=== PATIENT | female | born 1935 | race Caucasian/White ===

== ENCOUNTER 2018-03-08 14:47 | Inpatient (IN) | payer OTHER ==
[~2018-03-08] VITALS: Ht 170.2 cm; Wt 127.0 kg
[2018-03-08 15:00] VITALS: BP 150/68
--- NOTE | 2018-03-08 15:03 | NUR ---
pt to rm 5 biba
--- NOTE | 2018-03-08 15:10 | NUR ---
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 Patient was walking to restroom when she fall to her knees then fell forwards and hit her head/front of torso. Pt also reports of diarrhea/productive cough with white phelgm/weakness x 1 week. Patient denies any fevers/chestpain/sob/abd pain. Pt is aox4 to person, place, situation, and time. RR are even and unlabored. Patient solided with brown solid feces to adult briefs and clothes. Patient clean, changed into clean linen, and given bed bath. NAD. Pulse ox=85% on ra. Patient placed on 2L NC. ER MD Cuellar made aware of patient status. Patient to cardiac, bp, pulse, and pulse ox monitoring.
--- NOTE | 2018-03-08 16:10 | NUR ---
notified er md harris that patient has not been seen britany. no change in patient's condition. nad. vss. will continue to monitor.
[2018-03-08] MEDS ORDERED: ACET-2869 PO (16:19)
[2018-03-08] MEDS ORDERED: DILT300C16 PO (16:19)
[2018-03-08] MEDS ORDERED: LOSA100T25 PO (16:19)
[2018-03-08] MEDS ORDERED: WARF-18 PO (16:19)
[2018-03-08] MEDS ORDERED: [UNRECOGNIZED DRUG - CODE] PO ×2 (16:19→20:59)
[2018-03-08] MEDS ORDERED: FLUO10CA21 PO ×2 (16:19→20:59)
[2018-03-08] MEDS ORDERED: VITD1000 PO (16:19)
--- NOTE | 2018-03-08 17:10 | NUR ---
no order for patient yet. er md harris aware. vss. nad. patient laying supine in [facility] with no complaints. all needs met at this time. will continue to monitor.
[2018-03-08 18:14] LABS: HEMATOCRIT 43.8 % (36-48); HEMOGLOBIN 14.4 g/dL (12.0-16.0); MEAN CORPUSCULAR HEMOGLOBIN 31 pg (27-31); MEAN CORPUSCULAR HGB CONC 33 g/dL (33-37); MEAN CORPUSCULAR VOLUME 94.2 fL (80-94); PLATELET COUNT (AUTO) 235 K/uL (140-450); RED BLOOD CELL COUNT(AUTO) 4.65 MIL/uL (4.20-5.40); RED CELL DISTRIBUTION WIDTH 15.2 % (11.6-13.7)
[2018-03-08 18:36] LABS: ANION GAP 11.5 (8-16); CARBON DIOXIDE 25.4 mmol/L (21-32); CHLORIDE 100 mmol/L (98-107); CREATININE 0.9 mg/dL (0.6-1.3); GLUCOSE 122 mg/dL (74-106); POTASSIUM 3.9 mmol/L (3.5-5.1); SODIUM SERUM 133 mmol/L (136-145); UREA NITROGEN, BLOOD 16 mg/dL (7-18)
[2018-03-08 18:40] LABS: PROTHROMBIN TIME 24.2 secs (10.8-13.4)
[2018-03-08 18:43] LABS: ALBUMIN 2.8 g/dL (3.4-5.0); ASPARTATE AMINOTRANSFERASE 29 U/L (15-37); TOTAL BILIRUBIN 0.7 mg/dL (0.0-1.0); WHITE BLOOD COUNT (AUTO) 16.6 K/uL (4.8-10.8)
[2018-03-08 18:45] LABS: LYMPHOCYTES % (MANUAL) 2 % (20-46); MONOCYTES % (MANUAL) 6 % (5-12)
--- NOTE | 2018-03-08 18:48 | NUR ---
# 8 FR Urinary catheter inserted utilizing sterile technique. Immediate return ofyellow 100 ml urine noted. Urine sample collected and sent to lab. Pt tolerated procedure well.
--- NOTE | 2018-03-08 19:22 | NUR ---
Pt report given to Tito BOB. Transfer of care at this time.
--- NOTE | 2018-03-08 19:30 | NUR ---
PATIENT REFUSING CT EXAMINATION AT THIS TIME.
[2018-03-08 20:21] LABS: APPEARANCE,URINE CLOUDY (CLEAR); BILIRUBIN,URINE NEGATIVE (NEGATIVE); BLOOD, URINE 3+ (NEGATIVE); COLOR,URINE YELLOW (YELLOW); LEUKOCYTE ESTERASE ,URINE TRACE (NEGATIVE); NITRITE, URINE NEGATIVE (NEGATIVE); UGLUCOSE NEGATIVE (NEGATIVE)
[2018-03-08] MEDS ORDERED: ZOLPIDEM 5 MG TAB PO PRN (20:25)
[2018-03-08] MEDS ORDERED: ACETAMINOPHEN 325 MG TAB PO PRN (20:25)
[2018-03-08] MEDS ORDERED: ONDANSETRON 4 MG/2 ML VIAL IVP PRN (20:25)
[2018-03-08] MEDS ORDERED: HYDROcodone/APAP 7.5/325 MG 1 TAB PO PRN (20:25)
[2018-03-08 20:38] LABS: RBC,URINE 3-10 (FEW) /HPF (0-5)
--- NOTE | 2018-03-08 20:41 | NUR ---
Dr. Jacob evaluating patient at bedside.
--- NOTE | 2018-03-08 20:55 | NUR ---
Patient will be admitted to care of DR. TOMPKINS. Admited to TELE. Will go to room 108A. Belongings list completed. Report to JOHN BOB.
[2018-03-08] MEDS ORDERED: HYD1C TP (20:59)
[2018-03-08] MEDS ORDERED: [UNRECOGNIZED DRUG - CODE] TP (20:59)
[2018-03-08 21:14] LABS: FREE T4 (FREE THYROXINE) 1.1 ng/dL (0.76-1.46); MAGNESIUM 1.7 mg/dL (1.8-2.4); PHOSPHORUS 2.5 mg/dL (2.5-4.9); THYROID STIMULATING HORMONE 1.25 uIU/mL (0.34-3.74)
--- NOTE | 2018-03-08 21:42 | NUR ---
RECEIVED BY CHARGE NURSE AT 2100 THIS FEMALE OBESE PT. WITH DX. OF WEAKNESS , SP FALL AT HOME WITH R/O OF UTI, POSSIBLE SPINAL STENOSIS. IVF SITE TO LEFT FOREARM #22 . PATENT AND WITH GOOD BLOOD RETURN. NO SOB. 02 SAT 96 %. ABLE TO VERBALIZE NEEDS WELL IN LATVIAN. DENIES ANY PAIN AT THIS TIME. ORIENTED TO USE OF CALL LIGHT AND RAPID RESPONSE. DAUGHTER AND SON IN HERE ACCOMPANYING HER. TELEMETRY MONITORING. NSR IN STORAGE ADMINISTRATOR. REFUSED TO HAVE HER BACK CHECKED. STATED" I HAVE NO WOUNDS BACK THERE" . ALERT AND ORIENTED X 4. ROM X 4. BED ALARM ON AND CALL LIGHT WITH IN REACH.
--- NOTE | 2018-03-08 22:30 | NUR ---
PT. TURNED TO SIDE WITH PILLOW SUPPORT TO PRESSURE AREAS. NOTED PT. HAS REDNESS TO ABDOMINAL FOLDS . APPLIED INTER DRY TO FOLDS . WITH BILATERAL LOWER EXTREMITIES DARK DISCOLORATION . REFUSED TO HAVE HER BACK BE CHECKED FOR REDNESS. PROVIDED WITH ADDITIONAL WARM BLANKET RT "I AM COLD" RE-ORIENTED TO CALL LIGHT USE.
[2018-03-08] MEDS ORDERED: cefTRIAXone 1,000 MG VIAL ONE ×2 (23:25)
[2018-03-08] MEDS: DOCUSATE SODIUM 100 MG GELCAP PO SCH (23:25)
[2018-03-08] MEDS: NACL 0.9% 1,000 ML IV SCH (23:25)
[2018-03-09 00:25] VITALS: BP 117/75
[2018-03-09] MEDS ORDERED: MECLIZINE 25 MG TAB PO PRN (01:30)
[2018-03-09] MEDS ORDERED: WARF-18 PO (01:47)
[2018-03-09] MEDS ORDERED: HYDROCORTISONE 1% CRM 30 GM TUBE TP SCH (01:55)
[2018-03-09] MEDS ORDERED: HYDROcodone/APAP 5/325 MG 1 TAB TAB PO PRN (01:55)
[2018-03-09] MEDS ORDERED: FUROSEMIDE 40 MG/4 ML VIAL IVP SCH (02:30)
--- NOTE | 2018-03-09 03:00 | NUR ---
PT. TURNED TO SIDES. PILLOW SUPPORT TO PRESSURE AREAS. ABLE TO VERBALIZE NEEDS WELL. TELEMETRY MONITORING. NO COMPLAINTS DONE.
[2018-03-09 04:00] VITALS: BP 116/74
--- NOTE | 2018-03-09 05:31 | NUR ---
PT. AM PERSONAL HYGIENE RENDERED. SLEPT WELL THIS SHIFT. CALL LIGHT WITH IN REACH. NO SOB. TELEMETRY MONITORING.
--- NOTE | 2018-03-09 07:06 | NUR ---
REPORT RECEIVED FROM CHAIR INSPECTOR NURSE AT BEDSIDE FOR CONTINUITY OF CARE. PATIENT AWAKE AND ALERT, RESPIRATIONS EVEN AND UNLABORED ON 2L O2 VIA NC. PATIENT DENIES PAIN AT THIS TIME. IV TO R HAND INFUSING IVF WELL, PATENT, INTACT, AND ASYMPTOMATIC. UPDATED BOARD. UPDATED PLAN OF CARE WITH PATIENT. PATIENT VERBALIZED UNDERSTANDING. SAFETY PRECAUTION IN PLACE, CALL LIGHT WITHIN REACH. WILL CONTINUE TO MONITOR PATIENT.
--- NOTE | 2018-03-09 07:25 | NUR ---
ENDORSED TO THE NEXT RN FOR CONTINUITY OF CARE. KEPT DRY AND CLEAN. TURNED TO SIDES Q 2H. MAXIMUM ASSIST. TELEMETRY MONITORING.
[2018-03-09 07:59] LABS: BASOPHILS % (AUTO) 0.3 % (0.0-2.0); HEMATOCRIT 42.8 % (36-48); HEMOGLOBIN 14.3 g/dL (12.0-16.0); LYMPHOCYTES # (AUTO) 0.4 K/uL (2.5-16.5); LYMPHOCYTES % (AUTO) 3.4 % (20.5-51.1); MEAN CORPUSCULAR HEMOGLOBIN 31 pg (27-31); MEAN CORPUSCULAR HGB CONC 33 g/dL (33-37); MEAN CORPUSCULAR VOLUME 94.1 fL (80-94); MONOCYTES # (AUTO) 0.9 K/uL (0.8-1.0); MONOCYTES % (AUTO) 6.6 % (1.7-9.3); NEUTROPHILS # (AUTO) 11.9 K/uL (1.8-7.7); NEUTROPHILS % (AUTO) 89.7 % (42.2-75.2); PLATELET COUNT (AUTO) 225 K/uL (140-450); RED BLOOD CELL COUNT(AUTO) 4.55 MIL/uL (4.20-5.40); RED CELL DISTRIBUTION WIDTH 15.4 % (11.6-13.7); WHITE BLOOD COUNT (AUTO) 13.2 K/uL (4.8-10.8)
[2018-03-09 08:00] VITALS: BP 156/89
[2018-03-09 08:17] LABS: ANION GAP 10.5 (8-16); CARBON DIOXIDE 26.6 mmol/L (21-32); CHLORIDE 99 mmol/L (98-107); CREATININE 0.8 mg/dL (0.6-1.3); GLUCOSE 115 mg/dL (74-106); POTASSIUM 3.1 mmol/L (3.5-5.1); SODIUM SERUM 133 mmol/L (136-145); UREA NITROGEN, BLOOD 12 mg/dL (7-18)
[2018-03-09 08:19] LABS: CHOL/HDL RATIO 2.6 (1-4.5); MAGNESIUM 1.4 mg/dL (1.8-2.4); PHOSPHORUS 2.6 mg/dL (2.5-4.9)
--- NOTE | 2018-03-09 08:32 | NUR ---
PATIENT HAS BEEN SCREENED AND CATEGORIZED HIGH NUTRITION RISK. PATIENT WILL BE SEEN WITHIN 1-2 DAYS OF ADMISSION. 03/09/18 03/10/[address]
[2018-03-09] MEDS ORDERED: LOSARTAN 50 MG TAB PO SCH (09:00)
[2018-03-09] MEDS ORDERED: WARFARIN 5 MG TAB PO SCH (09:00)
[2018-03-09] MEDS ORDERED: TERBINAFINE 1% 15 GM TUBE TP SCH (09:00)
[2018-03-09] MEDS ORDERED: DILTIAZEM 120 MG CAPER PO SCH (09:00)
[2018-03-09] MEDS ORDERED: MAGNESIUM OXIDE 400 MG TAB PO SCH (09:00)
[2018-03-09] MEDS: DOCUSATE SODIUM 100 MG GELCAP PO SCH ×2 (09:00→20:32)
[2018-03-09] MEDS ORDERED: NON-FORMULARY ITEM (Losartan Potassium 100 MG) PO SCH (09:00)
[2018-03-09] MEDS ORDERED: GLUCOSAMINE SULFATE DIPOT CHLR 1000 MG PO SCH (09:00)
--- NOTE | 2018-03-09 09:45 | NUR ---
SPOKE WITH MAGGI Mccray FROM [facility]. FAXED INITIAL REVIW TO [phone] PHONE MAGGI [phone]
[2018-03-09] MEDS: LACTOBACILLUS RHAMNOSUS GG 1 EACH CAP PO SCH (09:52)
[2018-03-09] MEDS: FLUoxetine 20 MG CAP PO SCH (09:52)
[2018-03-09] MEDS: CHOLECALCIFEROL 1,000 IU TAB PO SCH (09:53)
--- NOTE | 2018-03-09 09:53 | NUR ---
ORDERED MEDICATION GIVEN. PATIENT REFUSED COLACE STATING THAT SHE HAD BM YESTERDAY, "DON'T NEED IT", AND LOSARTAN BECAUSE SHE IS "NOT ON THAT DRUG ANYMORE". RN VERBALIZED UNDERSTANDING AND WILL SPEAK TO THE DOCTOR ABOUT PATIENT'S MEDICATION. SON JUAN C AT BEDSIDE. PATIENT REFUSED XRAY STATING THAT SHE "CAN'T DO IT" BECAUSE OF THE PAIN. EDUCATE HER ABOUT PAIN MEDICATIONS. WILL ASSESS AND ADMINISTER NEEDED. SAFETY PRECAUTION IN PLACE, CALL LIGHT WITHIN REACH. WILL CONTINUE TO MONITOR PATIENT.
--- NOTE | 2018-03-09 10:15 | NUR ---
PATIENT CURRENTLY GETTING US OF CAROTID DONE, SON JUAN C AT BEDSIDE. WILL WAIT FOR RESULTS AND CONTINUE TO MONITOR.
[2018-03-09] MEDS: KCL 20 MEQ/WATER INJ PREMIX 100 ML IV SCH ×2 (11:49→14:00)
--- NOTE | 2018-03-09 11:55 | NUR ---
ORDERED MEDICATION GIVEN. PATIENT TOLERATING IT WELL. SON JUAN C AT BEDSIDE. LABOR RELATIONS MANAGER IN TO SPEAK TO PATIENT. WILL WAIT FOR HER EVALUATION.
[2018-03-09 12:00] VITALS: BP 106/61
--- NOTE | 2018-03-09 12:03 | NUR ---
PHYSICAL THERAPY IN TO SEE THE PATIENT. PATIENT REFUSING PHYSICAL THERAPY BECAUSE "IT'S TOO HARD, AND IT HURTS". WILL WAIT FOR THEIR EVALUATION.
[2018-03-09] MEDS ORDERED: CYCLOBENZAPRINE 10 MG TAB PO PRN (12:55)
--- NOTE | 2018-03-09 13:13 | NUR ---
SPOKE TO DR. AIKEN ABOUT REDNESS IN PATIENT'S ABD FOLDS AND BOTTOM. REQUESTED FOR INTERDRY DRESSING AND HYDRAGUARD. DR. AIKEN AGREABLE. STATED THAT HE WILL PUT IN ORDERS. WILL WAIT FOR HIS ORDERS.
--- NOTE | 2018-03-09 13:40 | NUR ---
PATIENT'S IV INFILTRATED, IV REMOVED, IV CATHETER INTACT, MINIMAL BLOOD NOTED. INFORMED PATIENT THAT NEW IV WOULD BE STARTED, PATIENT AGREEABLE. NEW IV INSERTED INTO RIGHT HAND, 22G, INTACT, ASYMPTOMATIC, AND PATENT. IVPB KRIDER RUNNING. PATIENT TOLERATED IT WELL. WILL CONTINUE TO MONITOR PATIENT.
--- NOTE | 2018-03-09 14:02 | NUR ---
PATIENT REFUSING SECOND BAG OF KRIDER. SHE REQUESTED FOR PILLS BECAUSE "I CAN'T HANDLE THIS". RN VERBALIZED UNDERSTANDING, DR. AIKEN AWARE. IV NOW RUNNING NS AT 10 ML/HR ORDERED. WILL CONTINUE TO MONITOR PATIENT.
--- NOTE | 2018-03-09 14:40 | NUR ---
03/09/18 RD INITIAL ASSESSMENT COMPLETED PLEASE REFER TO NUTRITION ASSESSMENT UNDER CARE ACTIVITY FOR ESTIMATED NUTRITIONAL NEEDS. 1. CONTINUE CARDIAC DIET TOLERATED 2. PROVIDED NUTRITION EDUCATION ON LOW SODIUM DIET 3. RD TO FOLLOW-UP 3-5 DAYS, MODERATE RISK REINALDO MAYS, RD
[2018-03-09 16:00] VITALS: BP 129/54
--- NOTE | 2018-03-09 16:23 | NUR ---
RECEIVED ORDER FOR DISCHARGE PLANNING TO SNF FOR P.T. I CALLED MAGGI AT [facility],[phone] AND SHE FAXED ME A LIST OF CONTRACTED SNFS THEY HAVE CONTRACTS WITH. SHE SAID OVER THE WEEKEND, MALACHI CARROLL IS FINDING FASTENER FOR AUTH. HIS PHONE IS [phone]. FAXED INQUIRY TO SELINA LOZADA IN [place] PHONE [phone] FAX [phone] [place] FAXED INQUIRY TO [facility] PHONE [phone] FAX [phone] [place] FAXED INQUIRY TO [facility] PHONE [phone] FAX [phone] [facility]JCIECH [facility]OPE[facility] FAXED INQUIRY TO [facility] PHONE [phone] FAX [phone] WOJCIECH LOPEZ
[2018-03-09] MEDS ORDERED: MAG SULF 2000 MG/WATER PREMIX 100 ML IV ONE (16:35)
[2018-03-09] MEDS ORDERED: MAG SULF 2000 MG/WATER PREMIX 100 ML IV SCH (17:00)
[2018-03-09] MEDS ORDERED: MAGNESIUM SULFATE 1GM in DEXTROSE 5% 100 ML PREMIX IV SCH (17:00)
--- NOTE | 2018-03-09 17:09 | NUR ---
DR. EARLY IN TO SPEAK TO PATIENT, DAUGHTER AND SON AT BEDSIDE. WILL WAIT FOR HIS ORDERS.
--- NOTE | 2018-03-09 17:20 | NUR ---
ORDERED MEDICATIONS GIVEN. PATIENT TOLERATED IT WELL. WILL CONTINUE TO MONITOR PATIENT.
--- NOTE | 2018-03-09 17:35 | NUR ---
DR. EARLY ASKED ABOUT PATIENT'S WARFARIN DOSE. RN INFORMED OF WHY PHARMACIST HELD IT. DR. EARLY CALLED AND SPOKE TO PHARMACIST. WILL WAIT FOR THEIR ORDERS.
--- NOTE | 2018-03-09 19:25 | NUR ---
REPORT GIVEN AT BEDSIDE TO RECREATIONAL RESORT MANAGER NURSE AT BEDSIDE FOR CONTINUITY OF CARE. PATIENT IN STABLE CONDITION.
--- NOTE | 2018-03-09 19:25 | NUR ---
RECEIVED FROM AM RN IN BED AWAKE AND ALERT. RESPIRATORY THERAPIST IN HERE TO SEE HER PERFORM INCENTIVE SPIROMETER. [place] TURNED AND CLEANED HER . KEPT DRY , CLEAN AND COMFORTABLE. NO SOB. CALL LIGHT WITH IN REACH AND CARE PLANS FOR THE NIGHT DISCUSSED WITH HER. ENCOURAGED TO STAY ON SIDE TURNED. PILLOW SUPPORT TO PRESSURE AREAS IN PLACE.
[2018-03-09 20:25] VITALS: BP 93/63
[2018-03-09] MEDS: ATORVASTATIN 20 MG TAB PO SCH (20:32)
[2018-03-09] MEDS: NACL 0.9% 1,000 ML IV SCH (20:33)
[2018-03-09] MEDS: LOSARTAN 25 MG TAB PO SCH (20:33)
[2018-03-09] MEDS ORDERED: HYDRAGUARD CREAM TP PRN (22:35)
[2018-03-09] MEDS ORDERED: INTERDRY CLOTH TP PRN (22:35)
--- NOTE | 2018-03-09 23:15 | NUR ---
PT. SLEEPING . TELEMETRY MONITORING. NO COMPLAINTS DONE. NO RESTLESSNESS NOTED.
[2018-03-10 00:20] VITALS: BP 98/64
[2018-03-10 04:00] VITALS: BP 135/75
--- NOTE | 2018-03-10 04:02 | NUR ---
PT. AM PERSONAL CARE RENDERED. TURNED TO SIDES Q 2H . PILLOW SUPPORT TO PRESSURE AREAS. ENCOURGED TO STAY AT TURNED SIDE. TELEMETRY MONITORING. NO COMPLAINTS DONE.
[2018-03-10 06:45] LABS: BASOPHILS % (AUTO) 0.3 % (0.0-2.0); EOSINOPHILS % (AUTO) 0.5 % (0.0-4.0); HEMATOCRIT 41.9 % (36-48); HEMOGLOBIN 14.1 g/dL (12.0-16.0); LYMPHOCYTES # (AUTO) 0.9 K/uL (2.5-16.5); LYMPHOCYTES % (AUTO) 11.2 % (20.5-51.1); MEAN CORPUSCULAR HEMOGLOBIN 32 pg (27-31); MEAN CORPUSCULAR HGB CONC 34 g/dL (33-37); MEAN CORPUSCULAR VOLUME 94.2 fL (80-94); MONOCYTES # (AUTO) 0.8 K/uL (0.8-1.0); MONOCYTES % (AUTO) 10.1 % (1.7-9.3); NEUTROPHILS # (AUTO) 6.5 K/uL (1.8-7.7); NEUTROPHILS % (AUTO) 77.9 % (42.2-75.2); PLATELET COUNT (AUTO) 213 K/uL (140-450); RED BLOOD CELL COUNT(AUTO) 4.45 MIL/uL (4.20-5.40); RED CELL DISTRIBUTION WIDTH 15.1 % (11.6-13.7); WHITE BLOOD COUNT (AUTO) 8.4 K/uL (4.8-10.8)
[2018-03-10 07:06] LABS: PROTHROMBIN TIME 18.5 secs (10.8-13.4)
[2018-03-10 07:12] LABS: ANION GAP 9.3 (8-16); CARBON DIOXIDE 29.2 mmol/L (21-32); CHLORIDE 99 mmol/L (98-107); CREATININE 0.8 mg/dL (0.6-1.3); GLUCOSE 111 mg/dL (74-106); MAGNESIUM 2.1 mg/dL (1.8-2.4); POTASSIUM 3.5 mmol/L (3.5-5.1); SODIUM SERUM 134 mmol/L (136-145); UREA NITROGEN, BLOOD 13 mg/dL (7-18)
--- NOTE | 2018-03-10 07:15 | NUR ---
REPORT RECEIVED FROM REGULATORY COMPLIANCE OFFICER NURSE AT BEDSIDE FOR CONTINUITY OF CARE. PATIENT AWAKE AND ALERT, STATES THAT SHE "FEELS BETTER". RESPIRATIONS EVEN AND UNLABORED ON 2L O2 VIA NC. PATIENT DENIES PAIN AT THIS TIME. IV TO R HAND 22G INFUSING NS AT 10 ML/HR. UPDATED BOARD. UPDATED PLAN OF CARE WITH PATIENT. PATIENT VERBALIZED UNDERSTANDING. SAFETY PRECAUTION IN PLACE, CALL LIGHT WITHIN REACH. WILL CONTINUE TO MONITOR PATIENT.
[2018-03-10 07:54] VITALS: BP 140/63
[2018-03-10] MEDS ORDERED: WARFARIN 2.5 MG TAB PO SCH (09:00)
[2018-03-10] MEDS ORDERED: FUROSEMIDE 40 MG/4 ML VIAL IVP SCH (09:00)
[2018-03-10] MEDS: LOSARTAN 25 MG TAB PO SCH ×2 (09:00→20:06)
[2018-03-10] MEDS ORDERED: LOSARTAN 25 MG TAB PO SCH (09:00)
[2018-03-10] MEDS: CHOLECALCIFEROL 1,000 IU TAB PO SCH (09:25)
[2018-03-10] MEDS: CARVEDILOL 6.25 MG TAB PO SCH (09:27)
[2018-03-10] MEDS: LACTOBACILLUS RHAMNOSUS GG 1 EACH CAP PO SCH (09:27)
[2018-03-10] MEDS: FLUoxetine 20 MG CAP PO SCH (09:28)
[2018-03-10] MEDS: POTASSIUM CHLORIDE 10 MEQ TABER PO SCH (09:28)
[2018-03-10] MEDS: DOCUSATE SODIUM 100 MG GELCAP PO SCH ×2 (09:29→20:06)
[2018-03-10] MEDS: MAGNESIUM OXIDE 400 MG TAB PO SCH (09:29)
[2018-03-10] MEDS: FUROSEMIDE 20 MG/2 ML VIAL IVP SCH (09:30)
--- NOTE | 2018-03-10 09:30 | NUR ---
ORDERED MEDICATIONS GIVEN. PATIENT REFUSED COZAAR. INFORMED PATIENT OF THE REASONS WHY DR. EARLY WANTED PATIENT ON THAT MEDICATION. PATIENT VERBALIZED UNDERSTANDING BUT REINFORCED REFUSAL. RN VERBALIZED UNDERSTANDING. PATIENT TOLERATED MEDICATIONS WELL. PATIENT CURRENTLY OFF O2 VIA NC, O2 SATURATION AT 91-92%, PATIENT DENIES SOB. SAFETY PRECAUTION IN PLACE, CALL LIGHT IN PLACE, WILL CONTINUE TO MONITOR.
--- NOTE | 2018-03-10 09:50 | NUR ---
PATIENT NOW SITTING ON SIDE OF BED, NO SIGNS OF DISTRESS OR SOB ON ROOM AIR. PATIENT REQUESTED TO AMBULATE TO BATHROOM. RN STATED THAT IT WAS NOT SAFE BUT WILL INQUIRE ABOUT BEDSIDE COMMODE WITH DR. BARDALES. SPOKE WITH DR. BARDALES ABOUT BSC ORDER FOR PATIENT. ORDER IN FOR BEDSIDE COMMODE. RN AND RN STUDENT ATTEMPTED TO ASSIST PATIENT TO BEDSIDE COMMODE. PATIENT WAS UNABLE TO STAND UP AND MANEUVER HERSELF TO BSC. PATIENT NOW BACK IN BED, WILL CALL IF SHE VOIDS OR HAS BOWEL MOVEMENT. PATIENT ALSO CURRENTLY BACK ON O2 2L VIA NC. SAFETY PRECAUTION IN PLACE, CALL LIGHT WITHIN REACH, WILL CONTINUE TO MONITOR PATIENT.
--- NOTE | 2018-03-10 10:12 | NUR ---
PATIENT REFUSED SPONGE BATH OFFERED BY JAMES LONG. PATIENT DOES NOT WANT BE MOVED.
--- NOTE | 2018-03-10 11:26 | NUR ---
PATIENT RESTING COMFORTABLY IN BED, NO SIGNS OF DISTRESS OR SOB NOTED ON 2L O2 VIA NC. WILL CONTINUE TO MONITOR PATIENT.
[2018-03-10 12:40] VITALS: BP 169/76
--- NOTE | 2018-03-10 12:40 | NUR ---
PATIENT'S LUNCH ARRIVED, PATIENT REQUESTED TO SIT UP ON SIDE OF BED. PATIENT ASSISTED TO SIT UP. PATIENT NOW EATING LUNCH. PATIENT CURRENTLY ON O2 2L NC. SAFETY PRECAUTION IN PLACE, CALL LIGHT WITHIN REACH, WILL CONTINUE TO MONITOR PATIENT.
--- NOTE | 2018-03-10 12:46 | NUR ---
SELINA LOZADA IN [place] PHONE [phone] CALLED SPOKE TO [facility] PT INFO TO BE REVIEWED, REQUESTED INFO PROVIDED, [facility] NEEDS COPAY DAYS.
--- NOTE | 2018-03-10 12:59 | NUR ---
[facility] CALLED [phone] FOR F/U ACCEPTANCE, THEY WILL CALL US AFTER ADMISSION HAS REVIEWED HER CASE.
--- NOTE | 2018-03-10 13:03 | NUR ---
SELINA LOZADA IN [place] CALLED [facility] [phone] STATES THEY CAN'T ACCEPT PATIENT BECAUSE THEY ARE "NOT TAKING PAIRS"
[2018-03-10 14:05] VITALS: BP 139/71
--- NOTE | 2018-03-10 14:07 | NUR ---
DOCTORS MAKING THEIR ROUNDS. PATIENT SITTING UP ON SIDE OF BED, NO SIGNS OF DISTRESS OR SOB ON 2L NC O2. PATIENT USING PHONE TO CALL FRIENDS AND FAMILY. PATIENT DENIES PAIN AT THE MOMENT. SAFETY PRECAUTIONS IN PLACE, CALL LIGHT WITHIN REACH, WILL CONTINUE TO MONITOR PATIENT.
--- NOTE | 2018-03-10 14:22 | NUR ---
PHYSICAL THERAPY IN TO SEE THE PATIENT. WILL WAIT FOR THEIR ASSESSMENT.
--- NOTE | 2018-03-10 16:10 | NUR ---
PATIENT VOIDED, PATIENT DID NOT WANT TO BE CHAGNED BECAUSE THAT WOULD CAUSE MOVEMENT WHICH WILL CAUSE PAIN. INFORMED PATIENT THE NEED TO BE CLEAN AND DRY. PATIENT VERBALIZED UNDERSTANDING AND AGREED TO BE CHANGED. PATIENT CHANGED AND REPOSITIONED FOR COMFORT. WILL CONTINUE TO MONITOR PATIENT. Addendum: 03/10/18 at 2017 by Yusuf Squires RN INTERDRY AND HYDRAGUARD APPLIED. PATIENT TOLERATED IT WELL.
[2018-03-10] MEDS: WARFARIN 1 MG, WARFARIN 5 MG PO SCH ×2 (17:24)
--- NOTE | 2018-03-10 17:24 | NUR ---
ORDERED MEDICATIONS GIVEN. PATIENT TOLERATED IT WELL. DAUGHTER AT BEDSIDE. WILL CONTINUE TO MONITOR.
--- NOTE | 2018-03-10 19:30 | NUR ---
REPORT GIVEN TO BLACKSMITH APPRENTICE NURSE AT BEDSIDE FOR CONTINUITY OF CARE. PATIENT IN STABLE CONDITION. DAUGHTER AT BEDSIDE.
--- NOTE | 2018-03-10 19:31 | NUR ---
REPORT RECEIVED FROM AM NURSE. PT IN STABLE CONDITION. AAOX4. INTRODUCED SELF TO PT AND FAMILY. BOARD UPDATED. PT IV SITE L IV SITE 22G PATENT AND INTACT. SKIN WARM, DRY, AND INTACT WITH NO OPEN WOUNDS. REDNESS IN THE SACRAL AREA AND DISCOLORATION OF THE LOWER EXTREMITIES. PT ON 2L VIA NC. 1500ML FLUID RESTRICTION DAILY. PT IS A FALL RISK DUE TO S/P FALL. BED LOCKED IN LOW POSITION. CALL CRUZ WITHIN REACH.
[2018-03-10 20:00] VITALS: BP 139/50
--- NOTE | 2018-03-10 20:05 | NUR ---
COZAAR AND COLACE GIVEN. PT DENIED LIPITOR. PT STATES MEDICATION GIVES HER STOMACH PROBLEMS. PT TOLERATED MEDS WELL.
[2018-03-10] MEDS: ATORVASTATIN 20 MG TAB PO SCH ×2 (20:06→20:08)
[2018-03-10] MEDS: NACL 0.9% 1,000 ML IV SCH (20:23)
--- NOTE | 2018-03-10 22:50 | NUR ---
LUCIE VILLALBA. PT TOLERATED WELL.
[2018-03-11] VITALS: BP 133/52
--- NOTE | 2018-03-11 00:50 | NUR ---
PT SLEEPING COMFORTABLY IN BED. NO S/S OF DISTRESS. WILL CONTINUE TO MONITOR.
--- NOTE | 2018-03-11 03:30 | NUR ---
PT SLEEPING COMFORTABLY BUT AROUSABLE. VS STABLE. NO S/S OF DISTRESS. WILL CONTINUE TO MONITOR.
[2018-03-11 04:00] VITALS: BP 143/73
--- NOTE | 2018-03-11 04:50 | NUR ---
PT AWAKE AND ALERT. PT INCONTINENT AND LINEN CHANGE DONE.
[2018-03-11 07:05] LABS: HEMATOCRIT 41.6 % (36-48); HEMOGLOBIN 13.9 g/dL (12.0-16.0); MEAN CORPUSCULAR HEMOGLOBIN 32 pg (27-31); MEAN CORPUSCULAR HGB CONC 33 g/dL (33-37); MEAN CORPUSCULAR VOLUME 94.8 fL (80-94); PLATELET COUNT (AUTO) 244 K/uL (140-450); RED BLOOD CELL COUNT(AUTO) 4.39 MIL/uL (4.20-5.40); RED CELL DISTRIBUTION WIDTH 14.9 % (11.6-13.7); WHITE BLOOD COUNT (AUTO) 7.5 K/uL (4.8-10.8)
--- NOTE | 2018-03-11 07:05 | NUR ---
REPORT GIVEN TO AM NURSE AT BEDSIDE. PT IN STABLE CONDITION.
--- NOTE | 2018-03-11 07:06 | NUR ---
REPORT RECEIVED FROM MONEY COUNTER NURSE AT BEDSIDE FOR CONTINUITY OF CARE. PATIENT AWAKE AND ALERT. RESPIRATIONS EVEN AND UNLABORED ON 2L O2 VIA NC. PATIENT DENIES PAIN AT THIS TIME. IV TO R HAND 22G INFUSING NS AT 10 ML/HR. UPDATED BOARD. UPDATED PLAN OF CARE WITH PATIENT. PATIENT VERBALIZED UNDERSTANDING. SAFETY PRECAUTION IN PLACE, CALL LIGHT WITHIN REACH. WILL CONTINUE TO MONITOR PATIENT.
[2018-03-11 07:24] LABS: CARBON DIOXIDE 30.6 mmol/L (21-32); CHLORIDE 102 mmol/L (98-107); CREATININE 0.7 mg/dL (0.6-1.3); GLUCOSE 101 mg/dL (74-106); POTASSIUM 3.6 mmol/L (3.5-5.1); SODIUM SERUM 136 mmol/L (136-145); UREA NITROGEN, BLOOD 14 mg/dL (7-18)
[2018-03-11 07:26] LABS: MAGNESIUM 1.8 mg/dL (1.8-2.4); PHOSPHORUS 3.3 mg/dL (2.5-4.9)
[2018-03-11 07:39] LABS: PROTHROMBIN TIME 16.2 secs (10.8-13.4)
[2018-03-11 07:47] VITALS: BP 138/80
[2018-03-11 07:52] LABS: BASOPHILS % (MANUAL) 0 % (0-2); EOSINOPHILS % (MANUAL) 0 % (0-4); LYMPHOCYTES % (MANUAL) 10 % (20-46); MONOCYTES % (MANUAL) 9 % (5-12)
[2018-03-11] MEDS: FUROSEMIDE 20 MG/2 ML VIAL IVP SCH (08:10)
[2018-03-11] MEDS: MAGNESIUM OXIDE 400 MG TAB PO SCH (08:11)
[2018-03-11] MEDS: POTASSIUM CHLORIDE 10 MEQ TABER PO SCH (08:11)
[2018-03-11] MEDS: DOCUSATE SODIUM 100 MG GELCAP PO SCH ×2 (08:11→21:05)
[2018-03-11] MEDS: FLUoxetine 20 MG CAP PO SCH (08:11)
[2018-03-11] MEDS: CARVEDILOL 6.25 MG TAB PO SCH (08:12)
[2018-03-11] MEDS: CHOLECALCIFEROL 1,000 IU TAB PO SCH (08:12)
[2018-03-11] MEDS: LACTOBACILLUS RHAMNOSUS GG 1 EACH CAP PO SCH (08:12)
--- NOTE | 2018-03-11 08:15 | NUR ---
ORDERED MEDICATIONS GIVEN. PATIENT REFUSED COZAAR STATING "I DO NOT TAKE THAT". EDUCATED PATIENT ON WHY SHE WAS PUT ON HER THOSE MEDICATIONS, PATIENT VERBALIZED UNDERSTANDING BUR REITERATED HER REFUSAL. PATIENT TOLERATED HER MEDICATIONS WELL. NO SIGNS OF DISTRESS OR SOB NOTED ON 2L O2 VIA NC. PATIENT DENIES PAIN AT THE MOMENT. PATIENT SITTING UP IN BED EATING BREAKFAST. SAFETY PRECAUTION IN PLACE, CALL LIGHT WITHIN REACH, WILL CONTINUE TO MONITOR PATIENT.
[2018-03-11] MEDS: LOSARTAN 25 MG TAB PO SCH ×2 (08:20→21:05)
--- NOTE | 2018-03-11 09:31 | NUR ---
PATIENT CALLED, COMPLAINED OF PAIN 02/16 IN GROIN AREA. STATING "IT HURTS WHEN I PEE, THIS NEVER HAPPENED TO HER BEFORE." RN VERBALIZED UNDERSTANDING. SPOKE TO DR. BARDALES. DR BARDALES STATING SHE WILL PUT IN PYRIDIUM. AWAITING FOR HER ORDERS, PATIENT AWARE. WILL CONTINUE TO MONITOR PATIENT. Addendum: 03/11/18 at 1315 by Yusuf Squires RN "THIS NEVER HAPPENED TO ME BEFORE."
[2018-03-11] MEDS ORDERED: PHENAZOPYRIDINE 100 MG TAB PO SCH (10:17)
--- NOTE | 2018-03-11 10:22 | NUR ---
ORDERED MEDICATIONS GIVEN TO PATIENT, PATIENT TOLERATING IT WELL. EDUCATED PATIENT ON MEDICATION, PATIENT STATED THAT SHE HAS TAKEN PYRIDIUM BEFORE AND VERBALIZED UNDERSTANDING. PATIENT SITTING ON SIDE OF BED, NO SIGNS OF DISTRESS OR SOB NOTED. SAFETY PRECAUTION IN PLACE, CALL LIGHT WITHIN REACH. WILL CONTINUE TO MONITOR PATIENT.
[2018-03-11] MEDS ORDERED: LOSA25TA22 PO (10:48)
[2018-03-11] MEDS ORDERED: AMOX-999 PO (10:48)
[2018-03-11] MEDS ORDERED: ASCO1CAP75 PO (10:48)
[2018-03-11] MEDS ORDERED: CARV6.25 PO (10:48)
--- NOTE | 2018-03-11 10:52 | NUR ---
DR. EARLY IN TO SEE THE PATIENT. WILL WAIT FOR HIS ASSESSMENT. PATIENT'S DAUGHTER COLIN CALLED, UPDATED HER ABOUT PATIENT'S PLAN OF CARE. SHE VERBALIZED UNDERSTANDING AND STATED SHE WILL BE IN LATER TO SEE THE PATIENT.
--- NOTE | 2018-03-11 11:30 | NUR ---
PATIENT VOIDED, PATIENT CHANGED, CLEANED, HYDRAGUARD AND INTERDRY DRESSING APPLIED. PATIENT STRUGGLED TO GET BACK INTO BED FROM SITTING FROM SIDE OF BED. PATIENT TOLERATED IT. SAFETY PRECAUTION IN PLACE, CALL LIGHT WITHIN REACH, WILL CONTINUE TO MONITOR PATIENT.
[2018-03-11 12:00] VITALS: BP 139/54
[2018-03-11] MEDS ORDERED: ROC250I IV (12:05)
[2018-03-11] MEDS ORDERED: ATOR20TA PO (12:06)
[2018-03-11] MEDS: PHENAZOPYRIDINE 100 MG TAB PO SCH ×2 (12:46→17:24)
--- NOTE | 2018-03-11 12:46 | NUR ---
ORDERED MEDICATIONS GIVEN. PATIENT TOLERATING IT WELL. NO SIGNS OF DISTRESS OF SOB NOTED ON ROOM AIR. O2 SATURATION 92-93% ON ROOM AIR. PATIENT FINISHED EATING LUNCH. WILL CONTINUE TO MONITOR PATIENT.
[2018-03-11 16:00] VITALS: BP 168/63
--- NOTE | 2018-03-11 16:13 | NUR ---
PATIENT RESTING IN BED, NO SIGNS OF DISTRESS OR SOB NOTED ON ROOM AIR, O2 91-92% ON ROOM AIR. PATIENT INQUIRED ABOUT POSSIBLE DISCHARGE THIS PM. INFORMED HER THAT NO FACILITIES AVAILABLE AT THE MOMENT, SHE WILL BE UPDATED TOMORROW WHEN A SITE BECOMES AVAILABLE. SAFETY PRECAUTION IN PLACE, CALL LIGHT WITHIN REACH. WILL CONTINUE TO MONITOR PATIENT.
[2018-03-11] MEDS: WARFARIN 1 MG, WARFARIN 5 MG PO SCH ×2 (17:24)
--- NOTE | 2018-03-11 17:24 | NUR ---
ORDERED MEDICATION GIVEN. PATIENT TOLERATED IT WELL. WILL CONTINUE TO MONITOR PATIENT.
--- NOTE | 2018-03-11 19:03 | NUR ---
REPORT GIVEN TO MYCOLOGY TEACHER NURSE AT BEDSIDE FOR CONTINUITY OF CARE. PATIENT IN STABLE CONDITION.
--- NOTE | 2018-03-11 19:04 | NUR ---
REPORT RECEIVED FROM AM NURSE AT BEDSIDE. PT IN STABLE CONDITION. AAOX4. INTRODUCED SELF AND BOARD UPDATED. IV SITE L FA 22G PATENT AND INTACT. SKIN WARM, DRY, AND NOT INTACT DUE TO DISCOLORATION ON THE LOWER EXTREMITIES AND SACRAL REDNESS. BED LOCKED IN LOW POSITION. CALL CRUZ WITHIN REACH.
[2018-03-11 20:00] VITALS: BP 130/54
[2018-03-11] MEDS: ATORVASTATIN 20 MG TAB PO SCH (21:00)
--- NOTE | 2018-03-11 21:05 | NUR ---
COLACE AND COZAAR GIVEN. PT DENIED LIPITOR STATING IT GIVES HER A STOMACH ACHE. PT TOLERATED WELL.
[2018-03-11] MEDS: NACL 0.9% 1,000 ML IV SCH (21:44)
--- NOTE | 2018-03-11 22:05 | NUR ---
LUCIE VILLALBA. PT TOLERATED WELL.
--- NOTE | 2018-03-11 23:45 | NUR ---
PT VS STABLE. ASLEEP BUT AROUSABLE. WILL CONTINUE TO MONITOR.
[2018-03-12] VITALS: BP 152/61
--- NOTE | 2018-03-12 02:00 | NUR ---
PT SLEEPING COMFORTABLY IN BED. NO S/S OF DISTRESS. WILL CONTINUE TO MONITOR.
[2018-03-12 04:00] VITALS: BP 163/78
--- NOTE | 2018-03-12 04:30 | NUR ---
PT INCONTINENT. ROXANNE CHANGE DONE. ZGUARD APPLIED TO SACRAL AREA. Addendum: 03/12/18 at 0448 by Tushar Younger RN HYDRAGUARD WAS APPLIED. NOT ZGUARD.
[2018-03-12 06:59] LABS: PROTHROMBIN TIME 16.3 secs (10.8-13.4)
--- NOTE | 2018-03-12 07:20 | NUR ---
REPORT GIVEN TO AM NURSE AT BEDSIDE. PT IN STABLE CONDITION.
--- NOTE | 2018-03-12 07:25 | NUR ---
RECEIVED REPORT FROM GAME FARM HELPER NURSE, PT IS AAOX4, CHAIR BOUND, IV IS ON HER LEFT FA, PATENT, INTACT, FLUSHING WELL, NO S/S OF RESPIRATORY DISTRESS OR DISCOMFORT NOTED, PT IS ON ROOM AIR, PT HAS DISCOLORATION AND DRYNESS ON BILATERAL LOWER EXT. OPEN TO AIR, SACRAL REDNESS IS NOTED, DISCUSSED PLAN OF CARE WITH PT, PT VERBALIZED UNDERSTANDING, SAFETY/FALL PRECAUTIONS ARE IN PLACE, CALL LIGHT IS WITHIN REACH, WILL CONTINUE TO MONITOR.
[2018-03-12 08:00] VITALS: BP 163/84
[2018-03-12] MEDS: LOSARTAN 25 MG TAB PO SCH ×3 (08:52→20:24)
[2018-03-12] MEDS: CARVEDILOL 6.25 MG TAB PO SCH (08:52)
[2018-03-12] MEDS: DOCUSATE SODIUM 100 MG GELCAP PO SCH ×2 (08:52→20:19)
[2018-03-12] MEDS: PHENAZOPYRIDINE 100 MG TAB PO SCH ×3 (08:53→17:46)
[2018-03-12] MEDS: CHOLECALCIFEROL 1,000 IU TAB PO SCH (08:54)
[2018-03-12] MEDS: POTASSIUM CHLORIDE 10 MEQ TABER PO SCH (08:54)
[2018-03-12] MEDS: LACTOBACILLUS RHAMNOSUS GG 1 EACH CAP PO SCH (08:55)
[2018-03-12] MEDS: MAGNESIUM OXIDE 400 MG TAB PO SCH (08:55)
[2018-03-12] MEDS: FLUoxetine 20 MG CAP PO SCH ×2 (08:55→09:17)
[2018-03-12] MEDS: FUROSEMIDE 20 MG/2 ML VIAL IVP SCH (08:56)
--- NOTE | 2018-03-12 08:56 | NUR ---
DUE MEDICATIONS GIVEN. PT TOLERATED WELL, CALL LIGHT IS WITHIN REACH, WILL CONTINUE TO MONITOR.
--- NOTE | 2018-03-12 09:00 | NUR ---
PATIENT HAD PROZAC ORDERED 40MG CAPSULE PO, NOTICED ONE CAPSULE WAS BROKEN WHEN OPENED FROM THE PACKAGE. I CALLED PHARMACY TO LET THEM KNOW, I SPOKE TO JOSELIN. I LET JOSELIN KNOW ONE OF THE CAPSULES WAS BROKEN, JOSELIN SAID HE WOULD PUT IN AN ORDER TO REPLACE THE BROKEN CAPSULE.
[2018-03-12] MEDS ORDERED: FLUoxetine 20 MG CAP PO SCH (09:05)
--- NOTE | 2018-03-12 10:58 | NUR ---
Chemical Packager Note: Per Brooklyn from [facility] , they aren't accepting patient's health insurance plan at this time, unable to accept. Per Elisha from [facility] , no beds at this time, unable to accept. Per Isaura from [facility] , their admission coordinator is not available today, she stated she is unsure if they can accept patient and requested for SW or CM to call tomorrow. I called [facility] , no answer, left message.
--- NOTE | 2018-03-12 11:32 | NUR ---
Stock Room Manager Note: I called admisson coordinator Zakiya from [facility] / , no answer, left message. I called and spoke with Sarai from [facility] , she stated their fashion consultant Claribel was going to call me to obtain information about inquiry. Per Db from [facility] , their admission coordinator is not available today due to holiday, he requested SW or/and CM call back tomorrow 03/13/18. Addendum: 03/12/18 at 1409 by Melissa Medina SS I received a call from Claribel at [facility] , she stated they don't have any female beds available at this time.
--- NOTE | 2018-03-12 11:45 | NUR ---
PT ATTEMPTED TO STAND UP FROM BED TO USE BEDSIDE COMMODE. PT WAS UNABLE TO STAND DUE TO SEVERE WEAKNESS IN HER LEGS. PT BED CHUCKS WERE CHANGED AND PATIENT WAS REPOSITIONED WITH THE HELP OF TWO OTHER NURSES. PT TOLERATED WELL. ALL OF PATIENT'S NEEDS ARE MET AT THIS TIME. PT SON IS AT BEDSIDE, CALL LIGHT IS WITHIN REACH.
[2018-03-12 12:00] VITALS: BP 133/85
--- NOTE | 2018-03-12 14:39 | NUR ---
PT IS SLEEPING IN BED AT THIS TIME, IN SEMI FOWLERS POSITION, CALL LIGHT IS WITHIN REACH.
[2018-03-12 16:00] VITALS: BP 155/81
[2018-03-12] MEDS: WARFARIN 1 MG, WARFARIN 5 MG PO SCH ×2 (17:46)
--- NOTE | 2018-03-12 19:15 | NUR ---
RECEIVED REPORT FROM DAY SHIFT NURSE AT PT BEDSIDE. PT IN STABLE CONDITION. FAMILY IS AT BEDSIDE. PT IS A/O X4. PT IS ON RA. IV ACCESS L FA 22G. IV IS PATENT AND INTACT. BILATERAL LOWER EXTREMITY DRYNESS AND DISCOLORATION, DIRECTOR OF INSTRUCTIONAL TECHNOLOGY. SACRAL REDNESS NOTED. PT HAS NO C/O PAIN. BED IS LOCKED, LOW POSITION WITH SIDE RAILS UP X2. BOARD UPDATED. CALL LIGHT IS WITHIN REACH. WILL CONTINUE TO MONITOR PT.
--- NOTE | 2018-03-12 19:15 | NUR ---
ENDORSED PT TO SENIOR MECHANICAL ESTIMATOR NURSE FOR CONTINUITY OF CARE. PT STABLE AT THIS TIME. FAMILY MEMBER IS AT BEDSIDE.
[2018-03-12 20:00] VITALS: BP 155/66
[2018-03-12] MEDS: CARVEDILOL 12.5 MG TAB PO SCH (20:19)
[2018-03-12] MEDS: ATORVASTATIN 20 MG TAB PO SCH (20:20)
--- NOTE | 2018-03-12 20:20 | NUR ---
ADMINISTERED SCHEDULED MEDICATIONS. PT REFUSED LIPITOR AND COZAAR MEDICATION. PT STATED "SHE DOES NOT LIKE LIPITOR AND SHE DOES NOT NEED TO TAKE COZAAR." WILL CONTINUE TO MONITOR PT.
[2018-03-12] MEDS: NACL 0.9% 1,000 ML IV SCH (20:23)
--- NOTE | 2018-03-12 22:51 | NUR ---
ADMINISTERED SCHEDULED MEDICATION. PT TOLERATED WELL. HELPED ADJUST PT IN BED. PT NOW READY TO GO TO SLEEP. WILL CONTINUE TO MONITOR.
[2018-03-13] VITALS: BP 163/60
--- NOTE | 2018-03-13 01:12 | NUR ---
PT SLEEPING COMFORTABLY IN BED. NO S/SX OF DISTRESS. WILL CONTINUE TO MONITOR.
[2018-03-13 04:00] VITALS: BP 143/77
--- NOTE | 2018-03-13 04:01 | NUR ---
PT AWAKE WATCHING TV IN BED. NO SIGNS OF DISTRESS. ALL PT NEEDS ARE MET AT THIS TIME. WILL CONTINUE TO MONITOR.
--- NOTE | 2018-03-13 05:11 | NUR ---
NO CHANGE IN CONDITION. WILL CONTINUE TO MONITOR PT.
--- NOTE | 2018-03-13 07:15 | NUR ---
ENDORSED PT TO DAY SHIFT NURSE FOR CONTINUITY OF CARE. PT IN STABLE CONDITION.
--- NOTE | 2018-03-13 07:20 | NUR ---
RECEIVED REPORT FROM SOFTWARE RELEASE MANAGER NURSE, PT IS AAOX4, CHAIR BOUND, IV IS ON HER LEFT FA, PATENT, INTACT, FLUSHING WELL, NO S/S OF RESPIRATORY DISTRESS OR DISCOMFORT NOTED, PT IS ON ROOM AIR, PT HAS DISCOLORATION AND DRYNESS ON BILATERAL LOWER EXT. OPEN TO AIR, SACRAL REDNESS IS NOTED, DISCUSSED PLAN OF CARE WITH PT, PT VERBALIZED UNDERSTANDING, SAFETY/FALL PRECAUTIONS ARE IN PLACE, CALL LIGHT IS WITHIN REACH, WILL CONTINUE TO MONITOR.
[2018-03-13 07:53] LABS: BASOPHILS # (AUTO) 0.1 K/uL (0.00-0.22); EOSINOPHILS # (AUTO) 0.2 K/uL (0-0.4); EOSINOPHILS % (AUTO) 2.9 % (0.0-4.0); HEMATOCRIT 43.3 % (36-48); HEMOGLOBIN 14.3 g/dL (12.0-16.0); LYMPHOCYTES # (AUTO) 1.3 K/uL (2.5-16.5); LYMPHOCYTES % (AUTO) 17.3 % (20.5-51.1); MEAN CORPUSCULAR HEMOGLOBIN 31 pg (27-31); MEAN CORPUSCULAR HGB CONC 33 g/dL (33-37); MEAN CORPUSCULAR VOLUME 94.5 fL (80-94); MONOCYTES % (AUTO) 12.9 % (1.7-9.3); NEUTROPHILS # (AUTO) 5.1 K/uL (1.8-7.7); NEUTROPHILS % (AUTO) 65.9 % (42.2-75.2); PLATELET COUNT (AUTO) 313 K/uL (140-450); RED BLOOD CELL COUNT(AUTO) 4.58 MIL/uL (4.20-5.40); RED CELL DISTRIBUTION WIDTH 14.5 % (11.6-13.7); WHITE BLOOD COUNT (AUTO) 7.7 K/uL (4.8-10.8)
[2018-03-13 08:00] VITALS: BP 132/78
[2018-03-13] MEDS: CARVEDILOL 12.5 MG TAB PO SCH ×2 (08:09→21:00)
[2018-03-13] MEDS: FLUoxetine 20 MG CAP PO SCH (08:10)
[2018-03-13] MEDS: LOSARTAN 25 MG TAB PO SCH ×2 (08:10→21:00)
[2018-03-13] MEDS: FUROSEMIDE 20 MG/2 ML VIAL IVP SCH (08:11)
[2018-03-13] MEDS: MAGNESIUM OXIDE 400 MG TAB PO SCH (08:11)
[2018-03-13] MEDS: POTASSIUM CHLORIDE 10 MEQ TABER PO SCH (08:11)
--- NOTE | 2018-03-13 08:11 | NUR ---
DUE MEDICATIONS GIVEN. PT TOLERATED WELL. PATIENT DID ASK ME TO COME BACK AND GIVE HER THE VIT D3, COLACE AND PROBIOTIC LATER, PT STATED, "I DO NOT WANT TO TAKE TOO MANY PILLS AT ONCE." I LET HER KNOW I WOULD BE BACK TO GIVE HER THE REST.
[2018-03-13 08:59] LABS: ANION GAP 11.9 (8-16); CARBON DIOXIDE 30.7 mmol/L (21-32); CHLORIDE 100 mmol/L (98-107); GLUCOSE 97 mg/dL (74-106); POTASSIUM 3.6 mmol/L (3.5-5.1); SODIUM SERUM 139 mmol/L (136-145); UREA NITROGEN, BLOOD 15 mg/dL (7-18)
[2018-03-13 09:14] LABS: PROTHROMBIN TIME 17.2 secs (10.8-13.4)
--- NOTE | 2018-03-13 09:45 | NUR ---
PHYSICAL THERAPY IS WORKING WITH PATIENT AT BEDSIDE AT THIS TIME, HAVING THE PATIENT SIT UP AT THE EDGE OF THE BED.
[2018-03-13] MEDS: DOCUSATE SODIUM 100 MG GELCAP PO SCH ×2 (10:01→22:00)
[2018-03-13] MEDS: CHOLECALCIFEROL 1,000 IU TAB PO SCH (10:01)
[2018-03-13] MEDS: LACTOBACILLUS RHAMNOSUS GG 1 EACH CAP PO SCH (10:01)
[2018-03-13 12:00] VITALS: BP 138/81
--- NOTE | 2018-03-13 14:07 | NUR ---
SPOKE WITH MAGGI FROM [facility],[phone]. I TOLD HER WHO WE FAXED INQUIRY TO. THE SAID TO FAX TO [facility], [phone], WHICH I DID. FAXED CONCURRENT REVIEW TO [facility] [phone] PHONE MAGGI [phone]
--- NOTE | 2018-03-13 15:25 | NUR ---
PHYSICAL THERAPY CO-SIGN The Physical Therapy Progress Notes documented by Oven Technician have been reviewed. I CONCUR W/COUNSEL NOTE; CONT PER TX PLAN Reviewed/Co-Signed by: Dilcia Abrams, PT Documentation Done by: DIMAS VILLEGAS PTA Addendum: 03/13/18 at 1525 by Dilcia Abrams PT Amended: Links added.
--- NOTE | 2018-03-13 15:27 | NUR ---
RECEIVED A CALL FROM MAGGI ARELLANO [facility]. THE PATIENT HAS BEEN ACCEPTED AT [address] [address] PHONE [phone] SHE WILL GO TO ROOM [address] SAEED, AFTER 3P.M. [facility], [phone]. [facility], [phone]. I SET UP TRANSPORT FOR 7P.Ana KATE RN AWARE
--- NOTE | 2018-03-13 15:30 | NUR ---
SPOKE TO KENTON FROM CASE MANAGEMENT, SHE LET ME KNOW PATIENT WOULD BE GOING TO [facility], [address] IN [place], PHONE # [phone], ROOM 108 BED 1, ACCEPTING PHYSICIAN IS DR. SAEED. I WENT AHEAD AND INFORMED THE PATIENT AND THE PATIENT'S SON WHO IS AT PATIENT'S BEDSIDE.
[2018-03-13 16:00] VITALS: BP 153/84
--- NOTE | 2018-03-13 16:40 | NUR ---
I CALLED [facility] AND GAVE REPORT TO LOU.
[2018-03-13] MEDS: WARFARIN 1 MG, WARFARIN 5 MG PO SCH ×2 (17:11)
--- NOTE | 2018-03-13 18:08 | NUR ---
DISCHARGE INSTRUCTIONS GIVEN, IV REMOVED, CATHETER TIP INTACT, ID WRIST BAND REMOVED.
--- NOTE | 2018-03-13 19:20 | NUR ---
ENDORSED PT TO PRINT LINE FEEDER NURSE FOR CONTINUITY OF CARE, PT STABLE AT THIS TIME.
--- NOTE | 2018-03-13 19:30 | NUR ---
ASSUMED CARE OF PATIENT, AWAKE, ALERT AND ORIENTED. NO COMPLAINS. NO IV. ONLY TELEMETRY. AWAITING FOR [facility] FOR AREA SALES MANAGER TO BLUE EYE. CALL LIGHT WITHIN REACH.
[2018-03-13] MEDS: ATORVASTATIN 20 MG TAB PO SCH (21:00)
--- NOTE | 2018-03-13 21:30 | NUR ---
DC TELEMETRY. RUG DRY ROOM ATTENDANT VIA [employer] BY [facility]. PAPERWORKS GIVEN. GOING TO ROOM 108A.
[2018-03-13 21:51] VITALS: BP 146/85
[2018-03-13] MEDS: NACL 0.9% 1,000 ML IV SCH (21:59)
== END 2018-03-13 21:40 | DRG 871 ==
LOC: MED 14:47 → MTU 20:23
PROVIDERS: ADMIT General Practice; ATTEND General Practice
DX: A41.9 Sepsis, unspecified organism (principal); I50.43 Acute on chronic combined systolic (congestive) and diastolic (congestive) heart failure; E43 Unspecified severe protein-calorie malnutrition; N39.0 Urinary tract infection, site not specified; E87.1 Hypo-osmolality and hyponatremia; Z68.41 Body mass index [BMI] 40.0-44.9, adult; I42.9 Cardiomyopathy, unspecified; G90.9 Disorder of the autonomic nervous system, unspecified; E66.01 Morbid (severe) obesity due to excess calories; E83.42 Hypomagnesemia; F32.9 Major depressive disorder, single episode, unspecified; F41.9 Anxiety disorder, unspecified; I07.1 Rheumatic tricuspid insufficiency; I11.0 Hypertensive heart disease with heart failure; I27.21 Secondary pulmonary arterial hypertension; I50.810 Right heart failure, unspecified; F41.8 Other specified anxiety disorders; I48.2 Chronic atrial fibrillation; M19.90 Unspecified osteoarthritis, unspecified site; S89.91XA Unspecified injury of right lower leg, initial encounter; I83.009 Varicose veins of unspecified lower extremity with ulcer of unspecified site; Y92.238 Other place in hospital as the place of occurrence of the external cause; I89.0 Lymphedema, not elsewhere classified; L30.9 Dermatitis, unspecified; W19.XXXA Unspecified fall, initial encounter; Y93.89 Activity, other specified; Y99.8 Other external cause status; Z79.01 Long term (current) use of anticoagulants; Z88.2 Allergy status to sulfonamides; Z79.899 Other long term (current) drug therapy; Z90.49 Acquired absence of other specified parts of digestive tract
CPT/HCPCS: 36415; 71045; 73562; 80048; 80053; 81001; 82140; 82150; 83036; 83690; 83735; 83880; 84100; 84439; 84443; 84484; 85025; 85610; 85730; 87081; 87086; 87186; 93005; 93880; 93925; 93970; 97110; 97140; 97530; 99285; J0696; J1940; J3475; J3480; J7030; J7060; Q0092

== ENCOUNTER 2018-04-24 03:30 | Inpatient (IN) | payer OTHER ==
[~2018-04-24] VITALS: Ht 172.7 cm; Wt 113.4 kg
[~2018-04-24 03:30] MED LIST: ASCO1CAP75 PO; ATOR20TA PO; CARV6.25 PO; FLUO10CA21 PO; HYD1C TP; HYDR-5122 PO; LOSA25TA15 PO; ROC250I IV; VITD1000 PO; WARF-18 PO; [UNRECOGNIZED DRUG - CODE] PO; [UNRECOGNIZED DRUG - CODE] TP
--- NOTE | 2018-04-24 03:34 | NUR ---
82/F BIBA FOR RT HIP PAIN S/P MECHANICAL FALL X 5 DAYS AGO. PER EMS, PT WAS AMA 5 DAYS AGO AFTER FALL D/T PT DENIED PAIN. PT REPORTED SHE FELL IN THE BATHROOM, AMBULATES WITH WALKER. PAIN WORSENED 2 DAYS AGO. RT HIP TENDER TO TOUCH, REPORTS PAIN DURING MOVEMENT, NO SHORTENING/ OBVIOUS DEFORMITY NOTED TO EXTREMITY. PMH: HTN, AFIB Addendum: 04/24/18 at 0448 by LEYLA PT REPORTS SHE HIT HER HEAD ON WASTE BASKET AND EVENTUALLY ON THE FLOOR D/T BASKET MOVED, DENIES LOC. SKIN INTACT ON SCALP, NO INJURIES NOTED. DENIES N/V, VISUAL DISTURBANCES, AOX4
--- NOTE | 2018-04-24 03:34 | NUR ---
PT ANNA BLS. TAKEN TO BED 8
[2018-04-24 03:45] VITALS: BP 156/76
--- NOTE | 2018-04-24 04:01 | NUR ---
Dr. Sellers evaluating patient at bedside.
[2018-04-24] MEDS ORDERED: MORPHINE SULFATE 4 MG/ML SYR IVP ONE (04:05)
[2018-04-24] MEDS ORDERED: KETOROLAC 30 MG/ML VIAL IVP ONE (04:05)
[2018-04-24] MEDS ORDERED: fentaNYL 0.05 MG/ML VIAL IVP ONE ×2 (04:45→05:15)
[2018-04-24 05:05] LABS: BASOPHILS % (AUTO) 0.3 % (0.0-2.0); EOSINOPHILS # (AUTO) 0.2 K/uL (0-0.4); EOSINOPHILS % (AUTO) 1.9 % (0.0-4.0); HEMATOCRIT 40.9 % (36-48); HEMOGLOBIN 13.4 g/dL (12.0-16.0); LYMPHOCYTES # (AUTO) 1.2 K/uL (2.5-16.5); LYMPHOCYTES % (AUTO) 11.6 % (20.5-51.1); MEAN CORPUSCULAR HEMOGLOBIN 31 pg (27-31); MEAN CORPUSCULAR HGB CONC 33 g/dL (33-37); MEAN CORPUSCULAR VOLUME 94.3 fL (80-94); MONOCYTES # (AUTO) 0.7 K/uL (0.8-1.0); MONOCYTES % (AUTO) 7.2 % (1.7-9.3); NEUTROPHILS # (AUTO) 7.9 K/uL (1.8-7.7); PLATELET COUNT (AUTO) 357 K/uL (140-450); RED BLOOD CELL COUNT(AUTO) 4.33 MIL/uL (4.20-5.40); RED CELL DISTRIBUTION WIDTH 15.9 % (11.6-13.7); WHITE BLOOD COUNT (AUTO) 10.1 K/uL (4.8-10.8)
[2018-04-24 05:15] LABS: ANION GAP 8.1 (8-16); CARBON DIOXIDE 27.7 mmol/L (21-32); CHLORIDE 106 mmol/L (98-107); CREATININE 0.9 mg/dL (0.6-1.3); GLUCOSE 106 mg/dL (74-106); POTASSIUM 3.8 mmol/L (3.5-5.1); SODIUM SERUM 138 mmol/L (136-145); UREA NITROGEN, BLOOD 18 mg/dL (7-18)
--- NOTE | 2018-04-24 05:16 | NUR ---
PT TAKEN TO RADIOLOGY
[2018-04-24 05:21] LABS: ALBUMIN 2.4 g/dL (3.4-5.0); ASPARTATE AMINOTRANSFERASE 17 U/L (15-37); TOTAL BILIRUBIN 0.7 mg/dL (0.0-1.0)
--- NOTE | 2018-04-24 05:32 | NUR ---
PT RETURN FROM CT
[2018-04-24 05:37] LABS: PROTHROMBIN TIME 77.9 secs (10.8-13.4)
[2018-04-24] MEDS ORDERED: NACL 0.9% 1,000 ML IV ONE (06:00)
[2018-04-24 06:01] LABS: APPEARANCE,URINE HAZY (CLEAR); COLOR,URINE AMBER (YELLOW)
[2018-04-24 06:03] LABS: BILIRUBIN,URINE NEGATIVE (NEGATIVE); BLOOD, URINE TRACE (NEGATIVE); UGLUCOSE NEGATIVE (NEGATIVE)
--- NOTE | 2018-04-24 06:17 | NUR ---
SON AT BEDSIDE
[2018-04-24 06:22] LABS: LEUKOCYTE ESTERASE ,URINE TRACE (NEGATIVE); NITRITE, URINE POSITIVE (NEGATIVE); RBC,URINE 0-5 (RARE) /HPF (0-5)
[2018-04-24] MEDS ORDERED: cefTRIAXone 1,000 MG VIAL ONE (06:38)
[2018-04-24] MEDS ORDERED: PHYTONADIONE 10 MG in NACL 0.9% 50 ML IV ONE (06:55)
[2018-04-24] MEDS ORDERED: ED NON STOCK ORDER 1 EA MISC IVP ONE (07:00)
[2018-04-24] MEDS ORDERED: PHYTONADIONE 10 MG/ML AMP ONE (07:02)
--- NOTE | 2018-04-24 07:29 | NUR ---
Pt report given to Bindu BOB. Transfer of care at this time.
[2018-04-24] MEDS ORDERED: NEOMYCIN/POLYMYXIN/BACITRACIN OIN 15 GM TUBE TP ONE (07:40)
--- NOTE | 2018-04-24 07:48 | NUR ---
pt.r esting in bed , rr even and unlabored. Able to speak in full and complete sentences. vss. Son at bedside. Will continue to monitor. Bed in lowest position
[2018-04-24 08:30] VITALS: BP 145/75
--- NOTE | 2018-04-24 08:43 | NUR ---
Patient will be admitted to care of dr. angulo . Admited to tele . Will go to room 124b. Belongings list completed. Report to mejia angulo .
--- NOTE | 2018-04-24 08:46 | NUR ---
PATIENT HAS BEEN SCREENED AND CATEGORIZED MODERATE NUTRITION RISK. PATIENT WILL BE SEEN WITHIN 3-5 DAYS OF ADMISSION. 04/26/18 04/28/[address]
[2018-04-24] MEDS ORDERED: ONDANSETRON 4 MG/2 ML VIAL IM/IVP PRN (09:00)
[2018-04-24] MEDS ORDERED: ACETAMINOPHEN 325 MG TAB PO PRN (09:00)
[2018-04-24] MEDS ORDERED: LORazepam 2 MG/ML VIAL IM/IVP PRN (09:00)
[2018-04-24] MEDS ORDERED: MORPHINE SULFATE 2 MG/ML SYR IVP PRN ×2 (09:00→17:30)
[2018-04-24] MEDS ORDERED: ZOLPIDEM 5 MG TAB PO PRN (09:00)
[2018-04-24] MEDS ORDERED: DOCUSATE SODIUM 100 MG GELCAP PO PRN (09:00)
--- NOTE | 2018-04-24 09:00 | NUR ---
Admitted from ED , with chief complaint of RIGHT HIP PAIN X2 DAYS. PT HAD A PREVIOUS FALL AT HOME 5 DAYS AGO AND HIT HER RT HIP. PT AAOX4. NO SOB NOTED. NO C/O PAIN AT THIS TIME. IV TO RT HAND PATENT AND INTACT. CHEST CLEAR. ABDOMEN LARGE BUT SOFT. BLE DARK DRY SCABS NOTED, SKIN INTACT. RT LEG WRAP WITH KERLIX, ANTIBIOTIC OINTMENT APPLIED IN ER TO RT LEG DRY SCABS. PT IS 82 y/o ,Female, Cooperative,oriented to call light, bed, phone,television, bathroom, smoking policy, visiting hours, procedures, ID bracelet on. Belongings list checked. INSTRUCTED PT TO CALL FOR ASSISTANCE, CALL LIGHT WITHIN REACH, PT VERBALIZED UNDERSTANDING.
--- NOTE | 2018-04-24 09:00 | NUR ---
NOTED BLE DARK DRY SCABS AND REDNESS ON ABDOMINAL FOLDS, OTHERWISE SKIN INTACT.
--- NOTE | 2018-04-24 09:53 | NUR ---
DUE TO RECEIVING A FNS CONSULT, PATIENT HAS BEEN CATEGORIZED HIGH RISK. PATIENT WILL BE SEEN WITHIN 1-2 DAYS FROM RECEIVING FNS CONSULT. 04/24/18-04/25/[address]
--- NOTE | 2018-04-24 10:00 | NUR ---
CONSENT FOR BLOOD TRANSFUSION SIGNED BY PT, RISKS AND BENEFITS DISCUSSED BY DR. HWANG EARLIER, PT VERBALIZED UNDERSTANDING.
[2018-04-24 10:31] LABS: CHOL/HDL RATIO 1.6 (1-4.5); MAGNESIUM 1.8 mg/dL (1.8-2.4); THYROID STIMULATING HORMONE 3.43 uIU/mL (0.34-3.74)
[2018-04-24] MEDS: NACL 0.9% 1,000 ML IV SCH ×2 (10:40→23:29)
--- NOTE | 2018-04-24 11:00 | NUR ---
1ST UNIT FFP STARTED.WILL MONITOR FOR BLOOD TRANSFUSION REACTIONS.
[2018-04-24 11:06] LABS: ANION GAP 11.2 (8-16); CARBON DIOXIDE 23.8 mmol/L (21-32); CHLORIDE 106 mmol/L (98-107); CREATININE 0.9 mg/dL (0.6-1.3); GLUCOSE 140 mg/dL (74-106); SODIUM SERUM 137 mmol/L (136-145); UREA NITROGEN, BLOOD 19 mg/dL (7-18)
[2018-04-24 11:07] LABS: ALBUMIN 2.5 g/dL (3.4-5.0); ASPARTATE AMINOTRANSFERASE 22 U/L (15-37); TOTAL BILIRUBIN 0.9 mg/dL (0.0-1.0)
--- NOTE | 2018-04-24 11:35 | NUR ---
1ST UNIT FFP COMPLETED, NO BLOOD TRANSFUSION REACTIONS NOTED. 2ND UNIT FFP FOLLOWED, WILL OBSERVE FOR BLOOD TRANSFUSION REACTIONS.
[2018-04-24 12:00] VITALS: BP 135/78
--- NOTE | 2018-04-24 12:05 | NUR ---
2ND UNIT FFP COMPLETED WITH NO TRANSFUSION REACTION NOTED. VITAL SIGNS STABLE. NO SOB NOTED. NO C/O PAAIN AT THIS TIME. CALLED HOME THEATER INSTALLER TO DRAW BLOOD IN 15 MINS.
--- NOTE | 2018-04-24 12:30 | NUR ---
CBC, BMP, INR DRAWN ORDERED.
[2018-04-24 12:45] LABS: BASOPHILS # (AUTO) 0.1 K/uL (0.00-0.22); BASOPHILS % (AUTO) 0.9 % (0.0-2.0); EOSINOPHILS % (AUTO) 0.3 % (0.0-4.0); HEMATOCRIT 32.3 % (36-48); HEMOGLOBIN 10.7 g/dL (12.0-16.0); LYMPHOCYTES # (AUTO) 1.1 K/uL (2.5-16.5); LYMPHOCYTES % (AUTO) 10.2 % (20.5-51.1); MEAN CORPUSCULAR HEMOGLOBIN 32 pg (27-31); MEAN CORPUSCULAR HGB CONC 33 g/dL (33-37); MEAN CORPUSCULAR VOLUME 95.1 fL (80-94); MONOCYTES # (AUTO) 1.2 K/uL (0.8-1.0); MONOCYTES % (AUTO) 10.9 % (1.7-9.3); NEUTROPHILS # (AUTO) 8.4 K/uL (1.8-7.7); NEUTROPHILS % (AUTO) 77.7 % (42.2-75.2); PLATELET COUNT (AUTO) 317 K/uL (140-450); RED CELL DISTRIBUTION WIDTH 15.6 % (11.6-13.7); WHITE BLOOD COUNT (AUTO) 10.8 K/uL (4.8-10.8)
[2018-04-24 13:41] LABS: PROTHROMBIN TIME 17.7 secs (10.8-13.4)
[2018-04-24 14:02] LABS: CHLORIDE 105 mmol/L (98-107); POTASSIUM 3.7 mmol/L (3.5-5.1); SODIUM SERUM 139 mmol/L (136-145)
[2018-04-24 14:03] LABS: ANION GAP 10.2 (8-16); CARBON DIOXIDE 27.5 mmol/L (21-32); CREATININE 0.9 mg/dL (0.6-1.3); GLUCOSE 115 mg/dL (74-106); UREA NITROGEN, BLOOD 19 mg/dL (7-18)
--- NOTE | 2018-04-24 14:36 | NUR ---
04/24/18 RD INITIAL ASSESSMENT COMPLETED PLEASE REFER TO NUTRITION ASSESSMENT UNDER CARE ACTIVITY FOR ESTIMATED NUTRITIONAL NEEDS. 1. CONTINUE CARDIAC AND CCHO DIET TOLERATED 2. PROVIDE CARDIAC TLC NUTRITION; COUMADIN AND VITAMIN K-FOOD AND DRUG INTERACTION EDUCATION 3. RD TO FOLLOW-UP 2-3 DAYS, HIGH RISK REINALDO MAYS RD
--- NOTE | 2018-04-24 15:05 | NUR ---
CALLED [facility] AND SPOKE WITH HENRY, [phone]. SHE SAID FAX REVIEW TO [facility] AT [phone]. SHE IS CHECKING TO SEE THE THE REVIEWS GO TO THE INSURANCE, [facility]. SHE WILL CALL IF REVIEWS WILL GO TO [facility].
[2018-04-24 16:00] VITALS: BP 154/60
[2018-04-24] MEDS: HYDROcodone/APAP 5/325 MG 1 TAB TAB PO PRN (17:00)
[2018-04-24] MEDS ORDERED: KETOROLAC 15 MG/ML VIAL IM PRN (17:30)
--- NOTE | 2018-04-24 19:21 | NUR ---
PT AWAKE, NO SOB NOTED. NO COMPLAINTS MADE AT THIS TIME. ENDORSED TO NEXT SHIFT NURSE FOR CONTINUITY OF CARE.
--- NOTE | 2018-04-24 19:22 | NUR ---
REPORT RECEIVED FROM AM NURSE AT BEDSIDE. PT IN STABLE CONDITION. AAOX4. INTRODUCED SELF TO PT. BOARD UPDATED. IV SITE R HAND 20G RUNNING NS@90ML/HR PATENT AND INTACT. SKIN WARM, DRY, AND INTACT WITH NO OPEN WOUNDS. BLE HAS DARKENED DISCOLORATION. MD IS AWARE. BED LOCKED IN LOW POSITION. CALL CRUZ WITHIN REACH. SAFETY PRECAUTIONS IN PLACE.
[2018-04-24 20:00] VITALS: BP 102/75
[2018-04-24] MEDS: CARVEDILOL 6.25 MG TAB PO SCH (20:10)
[2018-04-24] MEDS: LOSARTAN 25 MG TAB PO SCH ×2 (20:10→20:13)
--- NOTE | 2018-04-24 20:10 | NUR ---
COREG GIVEN PO. PT REFUSED TAKING LOSARTAN. PT STATES SHE DOES NOT TAKE THAT REGULARLY ANYMORE. PT TOLERATED WELL.
[2018-04-24] MEDS ORDERED: GLUCOSAMINE SULFATE DIPOT CHLR 1000 MG PO SCH (21:00)
--- NOTE | 2018-04-24 22:30 | NUR ---
PT SLEEPING COMFORTABLY WITH HOB ELEVATED. NO COMPLAINTS OF PAIN. NO SOB. NO S/S OF DISTRESS. WILL CONTINUE TO MONITOR.
[2018-04-25] VITALS: BP 110/72
[2018-04-25] MEDS: MORPHINE SULFATE 2 MG/ML SYR IVP PRN ×2 (03:16→09:56)
--- NOTE | 2018-04-25 03:16 | NUR ---
MORPHINE 3MG IVP GIVEN FOR 9/10 PAIN. PT TOLERATED WELL.
[2018-04-25 04:00] VITALS: BP 145/51
--- NOTE | 2018-04-25 04:50 | NUR ---
PT AWAKE AND ALERT WATCHING TV. NO S/S OF DISTRESS NOTED. WILL CONTINUE TO MONITOR.
[2018-04-25 06:50] LABS: ANION GAP 7.3 (8-16); CARBON DIOXIDE 26.4 mmol/L (21-32); CHLORIDE 109 mmol/L (98-107); CREATININE 0.8 mg/dL (0.6-1.3); GLUCOSE 113 mg/dL (74-106); POTASSIUM 3.7 mmol/L (3.5-5.1); SODIUM SERUM 139 mmol/L (136-145); UREA NITROGEN, BLOOD 19 mg/dL (7-18)
[2018-04-25 07:24] LABS: HEMATOCRIT 28.5 % (36-48); HEMOGLOBIN 9.3 g/dL (12.0-16.0); MEAN CORPUSCULAR HEMOGLOBIN 32 pg (27-31); MEAN CORPUSCULAR HGB CONC 33 g/dL (33-37); MEAN CORPUSCULAR VOLUME 96.6 fL (80-94); PLATELET COUNT (AUTO) 342 K/uL (140-450); RED BLOOD CELL COUNT(AUTO) 2.95 MIL/uL (4.20-5.40); RED CELL DISTRIBUTION WIDTH 14.8 % (11.6-13.7); WHITE BLOOD COUNT (AUTO) 8.1 K/uL (4.8-10.8)
[2018-04-25 07:25] LABS: BASOPHILS # (AUTO) 0.1 K/uL (0.00-0.22); BASOPHILS % (AUTO) 0.8 % (0.0-2.0); EOSINOPHILS # (AUTO) 0.1 K/uL (0-0.4); EOSINOPHILS % (AUTO) 1.3 % (0.0-4.0); LYMPHOCYTES # (AUTO) 1.2 K/uL (2.5-16.5); LYMPHOCYTES % (AUTO) 14.5 % (20.5-51.1); MONOCYTES # (AUTO) 1.1 K/uL (0.8-1.0); MONOCYTES % (AUTO) 13.5 % (1.7-9.3); NEUTROPHILS # (AUTO) 5.6 K/uL (1.8-7.7); NEUTROPHILS % (AUTO) 69.9 % (42.2-75.2)
--- NOTE | 2018-04-25 07:25 | NUR ---
REPORT GIVEN TO AM NURSE AT BEDSIDE. PT IN STABLE CONDITION.
--- NOTE | 2018-04-25 07:26 | NUR ---
RECEIVED BEDSIDE REPORT FROM PM SHIFT NURSE. PT ASLEEP IN BED, RESPIRATIONS EVEN & UNLABORED. CALL LIGHT WITHIN REACH.
[2018-04-25 08:00] VITALS: BP 144/50
[2018-04-25] MEDS: LOSARTAN 25 MG TAB PO SCH ×4 (08:13→20:31)
[2018-04-25] MEDS: FLUoxetine 20 MG CAP PO SCH (08:13)
[2018-04-25] MEDS: CARVEDILOL 6.25 MG TAB PO SCH ×2 (08:14→20:25)
[2018-04-25] MEDS: CHOLECALCIFEROL 1,000 IU TAB PO SCH (08:14)
[2018-04-25] MEDS: LACTOBACILLUS RHAMNOSUS GG 1 EACH CAP PO SCH (08:14)
[2018-04-25] MEDS: HYDROcodone/APAP 5/325 MG 1 TAB TAB PO PRN (08:14)
--- NOTE | 2018-04-25 08:14 | NUR ---
LOSARTAN WASTED. MED POPPED OUT OF PACK, BUT PT REFUSED TO TAKE MED. STATES SHE HAD STOPPED TAKING IT YEARS AGO. EXPLAINED BENEFITS & RISKS, CONTINUE TO REFUSE MED. WILL NOTIFY PHYSICIAN.
[2018-04-25] MEDS ORDERED: RHAMNOSUS GG PO SCH (09:00)
[2018-04-25] MEDS ORDERED: INULIN PO SCH (09:00)
[2018-04-25] MEDS: NACL 0.9% 1,000 ML IV SCH ×2 (10:13→21:20)
[2018-04-25] MEDS: LORazepam 2 MG/ML VIAL IVP PRN (10:13)
--- NOTE | 2018-04-25 10:13 | NUR ---
ATIVAN ADMINISTERED FOR RESTLESSNESS R/T PAIN & VERBALIZATIONS OF FEAR OF GOING TO CT-SCAN. EXPLAINED PROCEDURES TO PT. CONT TO BE RESTLESS.
--- NOTE | 2018-04-25 10:20 | NUR ---
PT REFUSED CT-SCAN. PT REFUSED TO TRANSFER FROM [facility] TO CT TABLE D/T PAIN. OFFERED TO CALL MD FOR STRONGER PAIN MED, BUT PT REFUSED & STATES SHE WOULD RATHER THAN DO THE CT-SCAN. EXPLAINED IMPORTANCE OF PROCEDURE, PT CONT TO REFUSE. PT ESCORTED BACK TO ROOM VIA [facility]. DR HWANG NOTIFIED OF PT REFUSING CT-SCAN. NO NEW ORDERS GIVEN.
[2018-04-25 12:00] VITALS: BP 122/55
[2018-04-25 14:11] LABS: BASOPHILS # (AUTO) 0.1 K/uL (0.00-0.22); BASOPHILS % (AUTO) 0.7 % (0.0-2.0); EOSINOPHILS # (AUTO) 0.3 K/uL (0-0.4); EOSINOPHILS % (AUTO) 2.4 % (0.0-4.0); HEMOGLOBIN 9.5 g/dL (12.0-16.0); LYMPHOCYTES # (AUTO) 1.3 K/uL (2.5-16.5); MEAN CORPUSCULAR HEMOGLOBIN 31 pg (27-31); MEAN CORPUSCULAR HGB CONC 33 g/dL (33-37); MEAN CORPUSCULAR VOLUME 95.6 fL (80-94); MONOCYTES # (AUTO) 1.4 K/uL (0.8-1.0); MONOCYTES % (AUTO) 12.8 % (1.7-9.3); NEUTROPHILS # (AUTO) 7.6 K/uL (1.8-7.7); NEUTROPHILS % (AUTO) 72.1 % (42.2-75.2); PLATELET COUNT (AUTO) 329 K/uL (140-450); RED BLOOD CELL COUNT(AUTO) 3.03 MIL/uL (4.20-5.40); RED CELL DISTRIBUTION WIDTH 15.5 % (11.6-13.7); WHITE BLOOD COUNT (AUTO) 10.5 K/uL (4.8-10.8)
--- NOTE | 2018-04-25 14:20 | NUR ---
PT REFUSED TO BE REPOSITIONED OR CHANGED. PER PT, SHE IS COMFORTABLE AT THE MOMENT & DOESNT WANT TO BE IN PAIN WHEN MOVED. OFFERED PAIN MED PRIOR TO REPOSITIONING, PT REFUSED. PT STATES TO COME BACK LATER. CALL LIGHT WITHIN REACH. NO SIGNS OF ACUTE DISTRESS.
--- NOTE | 2018-04-25 15:00 | NUR ---
ABLE TO PROVIDE PERICARE & REPOSITION PT VIA 4-PERSON MODERATE ASSIST. PT CHANDAN CARE FAIRLY. NO SIGNS OF DISTRESS. CALL LIGHT PLACED WITHIN REACH.
--- NOTE | 2018-04-25 15:21 | NUR ---
Initial review faxed to [facility].
--- NOTE | 2018-04-25 15:23 | NUR ---
NOTE SARLES LABORER DRYING DEPARTMENT NOTES SAYS REVIEWS SHOULD GO TO THE MEDICAL GROUP. SPOKE WITH [facility] UM COORDINATOR PH# [phone], WHO SAID REVIEWS SHOULD GO TO PATIENT'S INSURANCE NOT MEDICAL GROUP. SPOKE WITH HENRY PH# [phone] OF [facility] TO CONFIRM WHERE REVIEWS SHOULD GO AND INFORMED HER THAT PATIENT'S LAST ADMISSION WITH [facility] WAS RESPONSIBLE AND PATIENT'S INSURANCE AND ADDRESS HASN'T CHANGED. PER HENRY [facility] DON'T NEED REVIEWS SENT TO THEM BECAUSE PATIENT'S INSURANCE AND NOT [facility] IS RESPONSIBLE FOR THIS ADMISSION.
--- NOTE | 2018-04-25 15:58 | NUR ---
1521 CALLED [facility] AND SPOKE WITH HENRY. SHE STATED THAT [facility] IS RESPONSIBLE TO PROVIDE AUTH. I INFORMED HER THAT PER [facility] THE [facility] IS RESPONSIBLE AND THAT LAST VISIT [facility] PROVIDED AUTH. HENRY STATED SHE WOULD FOLLOW UP AND CALL BACK. 6520 RECEIVED A CALL FROM HENRY AND SHE DID VERIFY THAT [facility] IS RESPONSIBLE AND PROVIDED TRACKING NUMBER [id number] AND REQUESTED THAT CLINICALS BE SENT TO THEM.
[2018-04-25 16:00] VITALS: BP 138/72
--- NOTE | 2018-04-25 19:20 | NUR ---
BEDSIDE REPORT GIVEN TO PM SHIFT NURSE. MALE VISITOR AT BEDSIDE.
--- NOTE | 2018-04-25 19:27 | NUR ---
RECEIVED PT FROM JULIAN RN PT OBESE ON TELEMETRY CONTROLLED AFIB, IV ON RT HAND INFUSING WELL RELATIVE AT BED SIDE NOT INITIAL ASSESSMENT DONE
[2018-04-25 20:00] VITALS: BP 128/71
--- NOTE | 2018-04-25 20:00 | NUR ---
DR ANA M Mcgee IS HERE AND SEE THE PT
[2018-04-25 20:56] LABS: BASOPHILS # (AUTO) 0.1 K/uL (0.00-0.22); BASOPHILS % (AUTO) 0.6 % (0.0-2.0); EOSINOPHILS # (AUTO) 0.2 K/uL (0-0.4); HEMATOCRIT 27.2 % (36-48); HEMOGLOBIN 9.1 g/dL (12.0-16.0); LYMPHOCYTES # (AUTO) 1.5 K/uL (2.5-16.5); LYMPHOCYTES % (AUTO) 14.3 % (20.5-51.1); MEAN CORPUSCULAR HEMOGLOBIN 32 pg (27-31); MEAN CORPUSCULAR HGB CONC 34 g/dL (33-37); MEAN CORPUSCULAR VOLUME 95.5 fL (80-94); MONOCYTES # (AUTO) 1.5 K/uL (0.8-1.0); MONOCYTES % (AUTO) 14.1 % (1.7-9.3); NEUTROPHILS # (AUTO) 7.3 K/uL (1.8-7.7); PLATELET COUNT (AUTO) 315 K/uL (140-450); RED BLOOD CELL COUNT(AUTO) 2.85 MIL/uL (4.20-5.40); RED CELL DISTRIBUTION WIDTH 15.5 % (11.6-13.7); WHITE BLOOD COUNT (AUTO) 10.6 K/uL (4.8-10.8)
[2018-04-25] MEDS: HYDRAGUARD CREAM TP SCH (21:00)
[2018-04-25] MEDS ORDERED: SKINTEGRITY HYDROGEL TP SCH (21:00)
--- NOTE | 2018-04-25 22:00 | NUR ---
AFTER PAIN MEDIC GIVEN PT REMAIN STABLE
[2018-04-26] VITALS: BP 95/68
[2018-04-26] MEDS: LORazepam 2 MG/ML VIAL IVP PRN (00:56)
--- NOTE | 2018-04-26 01:00 | NUR ---
PT VERY RESTLESSNESS ATIVAN GIVEN ORDER ON TELEMETRY CONTROLLED AFIB
[2018-04-26 04:00] VITALS: BP 158/87
--- NOTE | 2018-04-26 04:00 | NUR ---
SPONGE BATH GIVEN LINEN CHANGED PT REMAIN STABLE AT THIS TIME NOT DISTRESS NOTED ON CONTROLLED AFIB ON TELE
[2018-04-26 06:34] LABS: BASOPHILS # (AUTO) 0.1 K/uL (0.00-0.22); BASOPHILS % (AUTO) 0.8 % (0.0-2.0); EOSINOPHILS # (AUTO) 0.2 K/uL (0-0.4); EOSINOPHILS % (AUTO) 2.5 % (0.0-4.0); HEMATOCRIT 27.6 % (36-48); HEMOGLOBIN 9.2 g/dL (12.0-16.0); LYMPHOCYTES # (AUTO) 1.2 K/uL (2.5-16.5); LYMPHOCYTES % (AUTO) 12.5 % (20.5-51.1); MEAN CORPUSCULAR HEMOGLOBIN 32 pg (27-31); MEAN CORPUSCULAR HGB CONC 33 g/dL (33-37); MEAN CORPUSCULAR VOLUME 96.1 fL (80-94); MONOCYTES # (AUTO) 1.2 K/uL (0.8-1.0); MONOCYTES % (AUTO) 13.2 % (1.7-9.3); NEUTROPHILS # (AUTO) 6.6 K/uL (1.8-7.7); PLATELET COUNT (AUTO) 292 K/uL (140-450); RED BLOOD CELL COUNT(AUTO) 2.87 MIL/uL (4.20-5.40); RED CELL DISTRIBUTION WIDTH 15.6 % (11.6-13.7); WHITE BLOOD COUNT (AUTO) 9.2 K/uL (4.8-10.8)
--- NOTE | 2018-04-26 06:53 | NUR ---
PT RESTING ON BED NOT PAIN AT THIS TIME REPOSITIONED Q2H ON TELEMETRY CONTROLLED AFIB
--- NOTE | 2018-04-26 07:20 | NUR ---
PT REPORT RECEIVED FROM INSTRUMENT REPAIRER NURSE AT BEDSIDE. PT IS ALERT AND AWAKE. IV SITE NOTED ON R HAND, 20 GAUGE, INFUSING NS AT 90 ML/HR. PT IS ON ROOM AIR. PT HAS BRUISING ON BUE'S AND, AND REDNESS OF ABDOMINAL FOLDS, FOOT DISCOLORATION/DRYNESS NOTED. PT IS IN STABLE CONDITION, NO S/S OF DISTRESS NOTED AT THIS TIME. CALL LIGHT WITHIN REACH, BED IN LOW POSITION. WILL CONTINUE TO MONITOR.
[2018-04-26 07:25] LABS: ANION GAP 5.2 (8-16); CHLORIDE 112 mmol/L (98-107); CREATININE 0.9 mg/dL (0.6-1.3); GLUCOSE 105 mg/dL (74-106); POTASSIUM 4.2 mmol/L (3.5-5.1); SODIUM SERUM 139 mmol/L (136-145); UREA NITROGEN, BLOOD 17 mg/dL (7-18)
[2018-04-26 08:00] VITALS: BP 156/53
[2018-04-26 08:13] LABS: PROTHROMBIN TIME 13.3 secs (10.8-13.4)
[2018-04-26] MEDS: NACL 0.9% 1,000 ML IV SCH ×2 (08:27→19:34)
[2018-04-26] MEDS: LOSARTAN 25 MG TAB PO SCH (09:00)
[2018-04-26] MEDS: HYDRAGUARD CREAM TP SCH ×2 (09:00→20:50)
[2018-04-26] MEDS: FLUoxetine 20 MG CAP PO SCH (09:28)
[2018-04-26] MEDS: CHOLECALCIFEROL 1,000 IU TAB PO SCH (09:29)
[2018-04-26] MEDS: CARVEDILOL 6.25 MG TAB PO SCH ×2 (09:29→20:49)
[2018-04-26] MEDS: LACTOBACILLUS RHAMNOSUS GG 1 EACH CAP PO SCH (09:29)
[2018-04-26] MEDS: MORPHINE SULFATE 2 MG/ML SYR IVP PRN ×2 (11:15→18:06)
[2018-04-26 12:00] VITALS: BP 142/62
[2018-04-26 12:27] LABS: FOLIC ACID 12.3 ng/mL (>3.0)
--- NOTE | 2018-04-26 12:30 | NUR ---
PT SEEN BY PHYSICAL THERAPY.
--- NOTE | 2018-04-26 14:56 | NUR ---
PT RESTING COMFORTABLY IN BED, NO C/O PAIN OR DISTRESS AT THIS TIME.
--- NOTE | 2018-04-26 15:45 | NUR ---
PT SEEN BY DR HWANG.
[2018-04-26 15:59] VITALS: BP 123/52
--- NOTE | 2018-04-26 16:42 | NUR ---
PT IS AWAKE AND ALERT IN BED, VISITING WITH HER SON AT THIS TIME. PT SHOWS NO S/S OF DISTRESS, NO C/O PAIN. CALL LIGHT WITHIN REACH. WILL CONTINUE TO MONITOR.
[2018-04-26] MEDS ORDERED: WARFARIN 5 MG TAB PO SCH (17:00)
--- NOTE | 2018-04-26 17:01 | NUR ---
Concurrent Review faxed to [facility] along with PT Evaluation.
[2018-04-26] MEDS ORDERED: MAGNESIUM OXIDE 400 MG TAB PO SCH (17:30)
--- NOTE | 2018-04-26 19:22 | NUR ---
RECEIVED REPORT FROM DAY SHIFT NURSE, CASTILLO, AT PT BEDSIDE. PT IN STABLE CONDITION. PT IS AAOX4. PT IS ON RA. IV ACCESS IN R HAND 20 G WITH IVF RUNNING PER MD ORDERS. BRUISING NOTED ON BILATERAL ARMS, R HIP AND UNDER BREAST AND ABDOMINAL SKIN FOLDS. PT HAS DISCOLORATION TO BILATERAL LOWER LEGS. BED IS LOCKED, LOW POSITION WITH SIDE RAILS UP X2. BOARD UPDATED. CALL LIGHT IS WITHIN REACH. WILL CONTINUE TO MONITOR PT.
--- NOTE | 2018-04-26 19:22 | NUR ---
PT REPORT GIVEN AT BEDSIDE TO STAFF MECHANICAL ENGINEER NURSE KALEB. PT ENDORSED IN STABLE CONDITION.
[2018-04-26 20:00] VITALS: BP 162/66
--- NOTE | 2018-04-26 20:50 | NUR ---
ADMINISTERED SCHEDULED MEDICATION. PT TOLERATED WELL. ALL NEEDS ARE MET AT THIS TIE. WILL CONTINUE TO MONITOR.
[2018-04-26] MEDS: KETOROLAC 15 MG/ML VIAL IVP PRN (22:29)
--- NOTE | 2018-04-26 22:29 | NUR ---
PT C/O PAIN. TORADOL GIVEN. PT TOLERATED WELL. WILL CONTINUE TO MONITOR.
--- NOTE | 2018-04-26 23:29 | NUR ---
PT RESTING COMFORTABLY IN BED. NO SIGNS OF DISTRESS. WILL CONTINUE TO MONITOR,
[2018-04-27] VITALS: BP 138/51
--- NOTE | 2018-04-27 01:00 | NUR ---
PT REFUSING TO BE CHANGED CLEANED OR TURNED. WILL CONTINUE TO MONITOR PT.
[2018-04-27] MEDS: MORPHINE SULFATE 2 MG/ML SYR IVP PRN (01:58)
--- NOTE | 2018-04-27 01:58 | NUR ---
PT C/O PAIN. MORPHINE GIVEN. PT TOLERATED WELL. WILL CONTINUE TO MONITOR.
[2018-04-27] MEDS: NACL 0.9% 1,000 ML IV SCH (02:15)
--- NOTE | 2018-04-27 02:15 | NUR ---
NEW BAG OF IVF STARTED. ALL PT NEEDS ARE MET AT THIS TIME. WILL CONTINUE TO MONITOR.
--- NOTE | 2018-04-27 02:58 | NUR ---
PT NOW SLEEPING IN BED. NO SIGNS OR SYMPTOMS OF DISTRESS. WILL CONTINUE TO MONITOR.
[2018-04-27 04:00] VITALS: BP 145/65
--- NOTE | 2018-04-27 05:00 | NUR ---
NO CHANGE IN CONDITION. WILL CONTINUE TO MONITOR PT.
[2018-04-27 05:58] LABS: BASOPHILS # (AUTO) 0.1 K/uL (0.00-0.22); BASOPHILS % (AUTO) 0.7 % (0.0-2.0); EOSINOPHILS # (AUTO) 0.3 K/uL (0-0.4); EOSINOPHILS % (AUTO) 3.9 % (0.0-4.0); HEMATOCRIT 26.5 % (36-48); HEMOGLOBIN 8.8 g/dL (12.0-16.0); LYMPHOCYTES # (AUTO) 1.3 K/uL (2.5-16.5); LYMPHOCYTES % (AUTO) 17.1 % (20.5-51.1); MEAN CORPUSCULAR HEMOGLOBIN 32 pg (27-31); MEAN CORPUSCULAR HGB CONC 33 g/dL (33-37); MEAN CORPUSCULAR VOLUME 96.7 fL (80-94); MONOCYTES # (AUTO) 0.9 K/uL (0.8-1.0); MONOCYTES % (AUTO) 12.3 % (1.7-9.3); PLATELET COUNT (AUTO) 320 K/uL (140-450); RED BLOOD CELL COUNT(AUTO) 2.74 MIL/uL (4.20-5.40); RED CELL DISTRIBUTION WIDTH 15.6 % (11.6-13.7); WHITE BLOOD COUNT (AUTO) 7.6 K/uL (4.8-10.8)
[2018-04-27 06:29] LABS: PROTHROMBIN TIME 14.9 secs (10.8-13.4)
[2018-04-27 06:42] LABS: ANION GAP 13.1 (8-16); CARBON DIOXIDE 25.8 mmol/L (21-32); CHLORIDE 103 mmol/L (98-107); CREATININE 0.8 mg/dL (0.6-1.3); GLUCOSE 97 mg/dL (74-106); POTASSIUM 3.9 mmol/L (3.5-5.1); SODIUM SERUM 138 mmol/L (136-145); UREA NITROGEN, BLOOD 16 mg/dL (7-18)
--- NOTE | 2018-04-27 07:15 | NUR ---
ENDORSED PT TO DAY SHIFT NURSE FOR CONTINUITY OF CARE. PT IN STABLE CONDITION.
--- NOTE | 2018-04-27 07:29 | NUR ---
PT REPORT OBTAINED AT BEDSIDE FROM RESEARCH LAB ASSISTANT NURSE. PT IS AWAKE AND ALERT, NO SIGNS OF DISTRESS NOTED. PT ON ROOM AIR. IV INFUSING NS AT 90 ML/HR. IV IS INTACT AND PATENT. FALL PRECAUTIONS IN PLACE. CALL LIGHT WITHIN REACH. WILL CONTINUE TO MONITOR.
[2018-04-27 08:00] VITALS: BP 146/75
[2018-04-27] MEDS: FLUoxetine 20 MG CAP PO SCH (08:29)
[2018-04-27] MEDS: CARVEDILOL 6.25 MG TAB PO SCH ×2 (08:30→20:25)
[2018-04-27] MEDS: CHOLECALCIFEROL 1,000 IU TAB PO SCH (08:30)
[2018-04-27] MEDS: LACTOBACILLUS RHAMNOSUS GG 1 EACH CAP PO SCH (08:30)
--- NOTE | 2018-04-27 08:30 | NUR ---
PT SEEN BY DR. HWANG
[2018-04-27] MEDS: APIXABAN 2.5 MG TAB PO SCH ×2 (08:45→20:31)
--- NOTE | 2018-04-27 08:45 | NUR ---
CALLED HENRY FROM [facility] AND INFORMED HER ON ORDER FOR SNF FOR PT. SHE SA[facility], 2. [facility] [phone] 3 [facility] [phone] 4. [facility] [phone].
[2018-04-27] MEDS ORDERED: MAGNESIUM OXIDE 400 MG TAB PO SCH (09:00)
[2018-04-27] MEDS: HYDRAGUARD CREAM TP SCH ×2 (09:00→20:32)
--- NOTE | 2018-04-27 09:14 | NUR ---
FAXED CONCURRENT REVIEW TO [facility] [phone] PHONE HENRY [phone]
[2018-04-27] MEDS: KETOROLAC 15 MG/ML VIAL IVP PRN (10:40)
--- NOTE | 2018-04-27 10:42 | NUR ---
PREMEDICATED PT WITH IV TORADOL FOR UPCOMING PT SESSION, FOR PAIN CONTROL. PT DID NOT WANT TO BE PREMEDICATED WITH IV MORPHINE.
--- NOTE | 2018-04-27 11:03 | NUR ---
PT BEEN SEEN BY PHYSICAL THERAPY AT THIS TIME.
[2018-04-27 11:50] VITALS: BP 154/78
--- NOTE | 2018-04-27 12:54 | NUR ---
PT AWAKE AND ALERT, NO S/S OF DISTRESS NOTED. PT IS EATING LUNCH AND VISITING WITH HER SON AT THIS TIME. CALL LIGHT WITHIN REACH; WILL CONTINUE TO MONITOR.
--- NOTE | 2018-04-27 12:56 | NUR ---
Assistant Professor Of Education Note: [facility] Facility placement follow up: Pending response from [facility] , fax number . Per Janet from [facility] , they don't have any beds today or tomorrow 04/28/18. Per , patient does not want to be transfer to [facility] . Pending response from Safia at [facility] .
--- NOTE | 2018-04-27 14:53 | NUR ---
04/27/18 RD FOLLOW UP COMPLETED PLEASE REFER TO NUTRITION ASSESSMENT UNDER CARE ACTIVITY FOR ESTIMATED NUTRITIONAL NEEDS. 1. CONTINUE CARDIAC AND CCHO 60 GM DIET TOLERATED 2. ENCOURAGE INCREASING PO INTAKE 3. RD TO FOLLOW-UP 3-5 DAYS, MODERATE RISK REINALDO MAYS, RD
[2018-04-27 14:59] LABS: BASOPHILS % (AUTO) 0.6 % (0.0-2.0); EOSINOPHILS # (AUTO) 0.2 K/uL (0-0.4); EOSINOPHILS % (AUTO) 2.3 % (0.0-4.0); HEMATOCRIT 29.2 % (36-48); HEMOGLOBIN 9.6 g/dL (12.0-16.0); LYMPHOCYTES # (AUTO) 1.3 K/uL (2.5-16.5); LYMPHOCYTES % (AUTO) 14.9 % (20.5-51.1); MEAN CORPUSCULAR HEMOGLOBIN 32 pg (27-31); MEAN CORPUSCULAR HGB CONC 33 g/dL (33-37); MEAN CORPUSCULAR VOLUME 96.1 fL (80-94); MONOCYTES # (AUTO) 0.8 K/uL (0.8-1.0); MONOCYTES % (AUTO) 9.6 % (1.7-9.3); NEUTROPHILS # (AUTO) 6.2 K/uL (1.8-7.7); NEUTROPHILS % (AUTO) 72.6 % (42.2-75.2); PLATELET COUNT (AUTO) 390 K/uL (140-450); RED BLOOD CELL COUNT(AUTO) 3.03 MIL/uL (4.20-5.40); RED CELL DISTRIBUTION WIDTH 15.6 % (11.6-13.7); WHITE BLOOD COUNT (AUTO) 8.5 K/uL (4.8-10.8)
--- NOTE | 2018-04-27 15:15 | NUR ---
CALLED [facility] AND LEFT MESSAGE FOR ADMISSIONS.
--- NOTE | 2018-04-27 15:34 | NUR ---
Teller Note: Residential Facility placement follow up: Per Jennifer from [facility] , fax number , patient has been accepted and may go to room 600 bed 2, accepting physician is , renal case manager Courtney gutiérrez. Per Reji from [facility] , patient has been accepted and may go to room 202A, accepting physician is , renal case manager Courtney aware.
--- NOTE | 2018-04-27 15:41 | NUR ---
RECEIVED A CALL BACK FROM MELITON FROM [facility]. SHE SAID SHE NEVER RECEIVED THE INQUIRY. TOLD HER THAT THE PATIENT HAS BEEN ACCEPTED AT ANOTHER FACILITY.
--- NOTE | 2018-04-27 15:45 | NUR ---
RECEIVED A CALL FROM HENRY FROM [facility] ASKING ABOUT WHY THE PATIENT WILL NOT BE DISCHARGED TODAY. I CALLED DR. HWANG AND HE SAID THAT THEY JUST CHANGED HER COUMADIN TO [facility] AND NEED TO MONITOR. ALSO PATIENT IS STILL 10/10 IN PAIN AND HE IS WAITING FOR CARDIAC TO REVIEW THE MEDS. I INFORMED HENRY. HENRY SAID THAT THE BUSINESS TAXES SPECIALIST NURSE FOR [facility] TOMORROW IS MALACHI [phone] AND HE WILL GIVE THE AUTH FOR THE FACILITY, EITHER [facility] OR [facility]. SHE SA[facility] [id number].
[2018-04-27 16:00] VITALS: BP 169/70
--- NOTE | 2018-04-27 16:45 | NUR ---
PT REFUSING TO BE CLEANED, CHANGED, AND TURNED. STATES THAT SHE EXPERIENCES AWFUL PAIN, AND SCREAMS WHEN BEING TURNED. EXPLAINED TO PT RISKS OF NOT BEING CLEANED OF URINE, SINCE PT IS INCONTINENT. EXPLAINED TO PT RISKS OF NOT BEING TURNED AND REPOSITIONED. PT VERBALIZED UNDERSTANDING, BUT STATES THAT SHE HAS THE RIGHT TO REFUSE.
[2018-04-27] MEDS ORDERED: WARFARIN 5 MG TAB PO SCH (17:00)
--- NOTE | 2018-04-27 17:09 | NUR ---
I SPOKE TO THE PATIENT AT BEDSIDE AND ENCOURAGE HER TO BE CHANGE AND REPOSITION, SHE REFUSED IN SPITE OF EXPLAINING THE RISK AND CONSEQUENCES.
--- NOTE | 2018-04-27 19:00 | NUR ---
PT'S SON VISITING AT BEDSIDE. PT'S SON IS AWARE OF PT'S REFUSAL TO BE CLEANED, CHANGED, AND REPOSITIONED.
--- NOTE | 2018-04-27 19:42 | NUR ---
PT REPORT GIVEN AT BEDSIDE TO NIGHTSHIFT NURSE. PT ENDORSED IN STABLE CONDITION.
--- NOTE | 2018-04-27 19:45 | NUR ---
RECEIVED REPORT FROM CASTILLO AT BEDSIDE FOR CONTINUITY OF CARE. PT AAOX3. PT IV NOTED L WRIST 2OG SALINE LOCK. NO SOB NO S/S OF DISTRESS ON RA. BED LOWERED CALL LIGHT WITHIN REACH WILL CONTINUE TO MONITOR.
[2018-04-27 20:00] VITALS: BP 134/66
[2018-04-28] VITALS: BP 143/90
[2018-04-28] MEDS: MORPHINE SULFATE 2 MG/ML SYR IVP PRN ×2 (00:59→05:33)
--- NOTE | 2018-04-28 01:30 | NUR ---
PT REFUSED JOANNA AND I FROM CHANGING HER SHEETS. PT IS INCONTINENT AND REFUSES TO CHANGE. SHEETS ARE SOILED. PT STATED SHE IS LEAVING TOMORROW.
[2018-04-28 04:00] VITALS: BP 159/71
[2018-04-28 07:07] LABS: BASOPHILS # (AUTO) 0.2 K/uL (0.00-0.22); BASOPHILS % (AUTO) 2.8 % (0.0-2.0); EOSINOPHILS # (AUTO) 0.3 K/uL (0-0.4); EOSINOPHILS % (AUTO) 4.8 % (0.0-4.0); HEMATOCRIT 27.4 % (36-48); LYMPHOCYTES # (AUTO) 1.2 K/uL (2.5-16.5); LYMPHOCYTES % (AUTO) 16.3 % (20.5-51.1); MEAN CORPUSCULAR HEMOGLOBIN 32 pg (27-31); MEAN CORPUSCULAR HGB CONC 33 g/dL (33-37); MEAN CORPUSCULAR VOLUME 96.5 fL (80-94); MONOCYTES # (AUTO) 0.8 K/uL (0.8-1.0); MONOCYTES % (AUTO) 11.5 % (1.7-9.3); NEUTROPHILS # (AUTO) 4.7 K/uL (1.8-7.7); NEUTROPHILS % (AUTO) 64.6 % (42.2-75.2); PLATELET COUNT (AUTO) 396 K/uL (140-450); RED BLOOD CELL COUNT(AUTO) 2.84 MIL/uL (4.20-5.40); RED CELL DISTRIBUTION WIDTH 15.7 % (11.6-13.7); WHITE BLOOD COUNT (AUTO) 7.2 K/uL (4.8-10.8)
[2018-04-28 07:33] LABS: ANION GAP 9.7 (8-16); CARBON DIOXIDE 25.4 mmol/L (21-32); CHLORIDE 105 mmol/L (98-107); CREATININE 0.8 mg/dL (0.6-1.3); GLUCOSE 95 mg/dL (74-106); POTASSIUM 4.1 mmol/L (3.5-5.1); SODIUM SERUM 136 mmol/L (136-145); UREA NITROGEN, BLOOD 16 mg/dL (7-18)
--- NOTE | 2018-04-28 07:39 | NUR ---
ENDORSED TO DAYSMAFT NURSE FOR CONTINUITY OF CARE.
--- NOTE | 2018-04-28 07:40 | NUR ---
RECEIVED REPORT FROM PM NURSE AT BEDSIDE. PT AOX4, RESTING ON BED. ABLE TO COMMUNICATE , IS BEDREST. PER PM NURSE, PT DENIES TO BE CHANGED HER LINEN. PT SITTING ON HER WET LINEN , INFORMED HER THAT SHE NEEDS TO BE CHANGED. REFUSED . ASKED HER TO LIFT HER UP AND REPOSITION,INFORMATION SECURITY CONSULTANT AND STUDENT NURSE AT BEDSIDE FOR HELP, PT REFUSED AGRESSIVELY. PT COMPLAINS OF HER BACK PAIN. PT HAS RT FA IV ACCESS 20 G,SALINE LOCKED. HAS BLE AND BUE EDEMA AND ALSO HAS DRYNESS. PT ON CARDIAC DIET. MODIFIED CODE, NO INTUBATION. PT LBM 03/27 PER PM NURSE. HELPED HER WITH BREAKFAST TRAY. PLACED CALL LIGHT WITHIN PT REACH. INFORMED HER TO USE CALL LIGHT FOR ANY HELP. VERBALIZED UNDERSTANDING.WILL CONTINUE TO MONITOR PT.
[2018-04-28 07:48] LABS: PROTHROMBIN TIME 15.4 secs (10.8-13.4)
[2018-04-28 08:00] VITALS: BP 180/100
[2018-04-28] MEDS ORDERED: MORPHINE SULFATE 2 MG/ML SYR IVP PRN (08:05)
[2018-04-28] MEDS ORDERED: MORPHINE SULFATE 4 MG/ML SYR IVP PRN (08:09)
[2018-04-28] MEDS ORDERED: LIDOCAINE OINTMENT 5% 35 GM TUBE TP ONE (08:10)
[2018-04-28] MEDS: BACLOFEN 10 MG TAB PO SCH ×3 (08:48→16:56)
[2018-04-28] MEDS: CARVEDILOL 6.25 MG TAB PO SCH (08:49)
[2018-04-28] MEDS: FLUoxetine 20 MG CAP PO SCH (08:49)
[2018-04-28] MEDS: CHOLECALCIFEROL 1,000 IU TAB PO SCH (08:50)
[2018-04-28] MEDS: HYDRAGUARD CREAM TP SCH (08:50)
[2018-04-28] MEDS: LACTOBACILLUS RHAMNOSUS GG 1 EACH CAP PO SCH (08:50)
[2018-04-28] MEDS: LIDOCAINE 5% 1 EA PATCH TP SCH ×2 (08:51→09:00)
--- NOTE | 2018-04-28 09:07 | NUR ---
PT HAS BEEN REFUSING REPOSITIONING AND PERINEAL CARE SINCE LABORER TIN CAN. SPOKE WITH PT AT THE BEDSIDE, OFFERED PAIN MEDICATIONS PRIOR TO TURNING AND CLEANING BUT PT ALSO REFUSING TO TAKE PAIN MEDS. PT STATED SHE HAS THE RIGHT TO REFUSE CARE AND DON'T WANT TO BE TURNED AT THIS TIME. RISKS AND CONSEQUENCES EXPLAINED, PT VERBALIZED UNDERSTANDING.
[2018-04-28] MEDS: APIXABAN 2.5 MG TAB PO SCH (09:10)
--- NOTE | 2018-04-28 09:10 | NUR ---
CHECKED ON PT AT HER BEDSIDE. PT EATING HER BREAKFAST. EXPLAINED PT THAT SHE NEEDS TO BE REPOSITIONED AND CHANGED SINCE SHE HAS BEEN ON WET LINEN AND IT MIGHT CAUSE INFECTION AND SKIN BREAKDOWN . PT REFUSED. STATES THAT SHE HAS "RIGHT" [place] CITIZEN NOT BE BE CHANGED. CHARGE NURSE, JAMES AND STUDENT NURSE AT BEDSIDE FOR HELP. CN EXPLAINED PT THAT SHE WILL BE ADMINISTERED PAIN MED AND TOPICAL LIDOCAINE PATCH TO HELP HER WITH PAIN MANAGEMENT BEFORE SHE WILL BE CHANGED. STILL REFUSES TO BE CHANGED AND REPOSITIONED. REFUSED HER PRN PAIN MEDS AND LIDOCAINE PATCH. ADMINISTERED IV ABX AND TOOK HER OTHER MEDS. TAKING PILLS ONE AT A TIME. HELPED HER TO SIT UP HIGH TO AID IN HER PO INTAKE. STATES THAT SHE HAS PAIN WHILE MOVING AROUND. STUDENT NURSE AT BEDSIDE . ASKING FOR KEEPING HER LEFT LEG DOWN THE BED, HELPED WITH HER LFT LEG TO BE DANGLED FROM BED. PT COMFORTABLE WITH IT. NO DISTRESS NOTED. PLACED CALL LIGHT WITHIN PT REACH . WILL CONTINUE TO MONITOR DECLINE IN PT. Addendum: 04/28/18 at 1015 by Tyrell Martínez RN WILL CONTINUE TO MONITOR PT AND HER PAIN LEVEL.
--- NOTE | 2018-04-28 10:00 | NUR ---
CHECKED ON PT. REFUSED TO TAKE CALCIUM PILL. ALL OTHER MEDS TAKEN . STUDENT NURSE AT BEDSIDE. WILL CONTINUE TO MONITOR PT.
[2018-04-28] MEDS ORDERED: ASCO1CAP75 PO (10:53)
[2018-04-28] MEDS ORDERED: LEVO250T2 PO (11:00)
[2018-04-28] MEDS ORDERED: APIX2.5 PO (11:00)
[2018-04-28] MEDS ORDERED: DOCU-299 PO (11:00)
[2018-04-28] MEDS ORDERED: BACL10TA4 PO (11:00)
[2018-04-28] MEDS ORDERED: HYDR-5123 PO (11:10)
--- NOTE | 2018-04-28 11:30 | NUR ---
MADE A FOLLOW UP CALL TO [facility] AND SPOKE WITH NOEMÍ ECONOMICS LECTURER NURSE, NOEMÍ STATED THAT PT IS GOING TO [facility] ON HER LIST. CALLED [facility], SPOKE WITH GABE BOB FEDERAL AID COORDINATOR AND STATED THAT PT IS GOING TO ROOM 600 BED 2. [facility] SET UP AT 1330 HRS FIELD SUPPORT TECHNICIAN TIME BY FLORIN FROM [facility]. ERIC-LISBETH ASSIGNED NOTIFIED. Addendum: 04/28/18 at 1405 by Sandy Walters RN FLORIN ALSO MADE AWARE OF PT'S WEIGHT.
[2018-04-28 12:00] VITALS: BP 175/65
[2018-04-28 12:37] VITALS: BP 175/63
[2018-04-28] MEDS: KETOROLAC 15 MG/ML VIAL IVP PRN (13:52)
--- NOTE | 2018-04-28 14:10 | NUR ---
[facility] ARRIVED WITH THE REGULAR GURNEY, PT'S SON JUAN C STATED THAT PT WON'T BE ABLE TO FIT IN THAT GURNEY, PT ALSO REFUSED TO TRY TO TRANSFER TO THE GURNEY. CALLED [facility], SPOKE WITH PATRICK AND STATED THAT THE PT DID NOT MEET THE CRITERIA FOR THE BARIATRIC GURNEY ALTHOUGH FLORIN IS AWARE OF PT'S WEIGHT. THEIR CRITERIA FOR THE BARIATRIC GURNEY IS 300 POUNDS OR MORE, PT IS ONLY 250 POUNDS PER FLORIN. PT REQUESTED A BIGGER GURNEY, PER PATRICK THEY ARE SENDING A BARIATRIC GURNEY ETA 1830 HRS TODAY. PT AND SON MADE AWARE.
--- NOTE | 2018-04-28 14:27 | NUR ---
CALLED LISBETH BERNAL AT [facility]. UPDATED HER THAT PT COMMERCIAL [employer] TIME IS RESCHEDULED TO 1830 PT NEEDS BARIATRIC GURNEY TO BE TRANSPORTED . INFORMED THAT PT HAS BRUISES ON HER LFT HAND AND AC REGION DUE TO IV ACCESS SITE. SON AT BEDSIDE. AWARE OF NEW TIME TO BE TRANSPORTED. ADMINISTERED TORADOL TO PT. WILL CONTINUE TO MONITOR PT.
[2018-04-28 16:00] VITALS: BP 168/112
[2018-04-28] MEDS ORDERED: LORazepam 1 MG TAB PO SCH (17:00)
--- NOTE | 2018-04-28 19:00 | NUR ---
PT WENT TO [facility] WITH [facility] PERSONN[facility]. PT WAS SLEEPING AT TIME OF TRANSFER. REPORT PROVIDED TO TRANSPORT PERSONNEL. PT IN STABLE CONDITION. SON AT BEDSIDE. PT WAS ADMINISTER ATIVAN 2 MG AND BACLOFEN PT ASKED FOR ANXIETY MEDS AND TO HELP HER WITH MUSCLE PAIN. PT IN STABLE CONDITION AT TIME OF DISCHARGE. PT DC [facility] PROVIDED TO SON AND DC PAPER WELL.
== END 2018-04-28 19:00 | DRG 963 ==
LOC: MED 03:30 → MTU 07:57
PROVIDERS: ADMIT General Practice; ATTEND General Practice
PROC: 30233L1 Transfusion of Nonautologous Fresh Plasma into Peripheral Vein, Percutaneous Approach (ICD-10-PCS; principal; 2018-04-24)
PROC: 30233K1 Transfusion of Nonautologous Frozen Plasma into Peripheral Vein, Percutaneous Approach (ICD-10-PCS; 2018-04-24)
DX: S06.300A Unspecified focal traumatic brain injury without loss of consciousness, initial encounter (principal); N17.0 Acute kidney failure with tubular necrosis; S36.892A Contusion of other intra-abdominal organs, initial encounter; N39.0 Urinary tract infection, site not specified; E44.0 Moderate protein-calorie malnutrition; I48.91 Unspecified atrial fibrillation; D53.1 Other megaloblastic anemias, not elsewhere classified; E66.01 Morbid (severe) obesity due to excess calories; E83.42 Hypomagnesemia; E11.9 Type 2 diabetes mellitus without complications; T45.515A Adverse effect of anticoagulants, initial encounter; I10 Essential (primary) hypertension; R79.1 Abnormal coagulation profile; W18.39XA Other fall on same level, initial encounter; F32.9 Major depressive disorder, single episode, unspecified; L25.9 Unspecified contact dermatitis, unspecified cause; L74.0 Miliaria rubra; Z79.01 Long term (current) use of anticoagulants; Z88.2 Allergy status to sulfonamides; Z79.1 Long term (current) use of non-steroidal anti-inflammatories (NSAID); Z79.899 Other long term (current) drug therapy; Z90.49 Acquired absence of other specified parts of digestive tract; Z82.49 Family history of ischemic heart disease and other diseases of the circulatory system; Y92.89 Other specified places as the place of occurrence of the external cause; Z68.38 Body mass index [BMI] 38.0-38.9, adult; Y93.89 Activity, other specified; Y99.8 Other external cause status; Z91.19 Patient's noncompliance with other medical treatment and regimen
CPT/HCPCS: 36415; 71045; 80048; 80053; 81001; 82550; 82607; 82728; 82746; 83036; 83540; 83605; 83690; 83735; 83880; 84100; 84134; 84443; 85025; 85045; 85610; 85730; 86886; 86900; 86901; 86920; 87040; 87081; 87086; 87186; 93005; 96365; 96367; 96375; 96376; 97110; 97530; 99291; A6248; C1758; J0696; J1885; J2060; J2270; J3010; J3430; J7030; J7060; P9017; Q0092